=== PATIENT | female | born 1960 | race African-American/Black ===

== ENCOUNTER 2016-12-15 09:59 | Emergency (ER) | payer MEDICAID, OTHER ==
[~2016-12-15] VITALS: Ht 157.5 cm; Wt 93.2 kg
[~2016-12-15 09:59] MED LIST: ATRITAB PO; FERR324T8 PO; HYDR25TA5 PO; IBUP-232 PO; LEVO150T7 PO; MOBI7.5T PO; SIMV80TA PO; TRAM50TA PO
[2016-12-15 10:03] VITALS: BP 112/69; PULSE 68; RESP 16; TEMP 98.2; O2SAT 99
[2016-12-15] MEDS ORDERED: KETOROLAC TROMETHAMINE 30 MG/ML (IVP) VIAL IV PUSH ONE (10:30)
[2016-12-15 10:39] LABS: AUTOMATED NEUTROPHIL # 3.3 TH/MM3 (1.8-7.7); BASOPHIL % 0.5 % (0.0-2.0); EOSINOPHIL # 0.1 TH/MM3 (0-0.4); EOSINOPHIL % 1.2 % (0.0-4.0); HEMATOCRIT 34.8 % (35.0-46.0); HEMO FLAGS DIFF FINAL; LYMPH % 29.5 % (9.0-44.0); LYMPHOCYTE # 1.6 TH/MM3 (1.0-4.8); MEAN CELL VOLUME 82.4 FL (80.0-100.0); MEAN CORPUSCULAR HEMOGLOBIN 27.4 PG (27.0-34.0); MEAN CORPUSCULAR HGB CONC 33.2 % (32.0-36.0); NEUT % 59.8 % (16.0-70.0); PLATELET COUNT 320 TH/MM3 (150-450); RED BLOOD COUNT 4.23 MIL/MM3 (4.00-5.30); RED CELL DISTRIBUTION WIDTH 13.8 % (11.6-17.2); WHITE BLOOD COUNT 5.5 TH/MM3 (4.0-11.0)
[2016-12-15 10:45] LABS: BLOOD, URINE NEG (NEG); GLUCOSE,URINE NEG (NEG); KETONE, URINE NEG (NEG); NITRITE,URINE NEG (NEG)
[2016-12-15 10:48] LABS: CHLORIDE 104 MEQ/L (98-107); POTASSIUM 3.2 MEQ/L (3.5-5.1); SODIUM (NA) 141 MEQ/L (136-145)
[2016-12-15 10:49] LABS: METHOD OF COLLECTION CLEAN CATCH; URINE COLOR YELLOW (YELLW/STRAW)
[2016-12-15 10:52] LABS: ANION GAP 9 MEQ/L (5-15); BICARBONATE 28.5 MEQ/L (21.0-32.0); BLOOD UREA NITROGEN 18 MG/DL (7-18)
[2016-12-15 10:52] LABS: BACTERIA, URINE OCC /hpf; COMMENT (UR) CULT NOT INDICATED; CULTURE IF INDICATED CULT NOT INDICATED; RBC, URINE 0-3 /hpf (0-3); SQUAMOUS EPITHELIAL CELL URINE > 8 /hpf (0-5); WBC, URINE 15-19 /hpf (0-5)
[2016-12-15 10:55] LABS: ALT (GPT) 22 U/L (10-53); AST (GOT) 20 U/L (15-37); GLOMERULAR FILTRATION RATE 82 ML/MIN (>89)
[2016-12-15 10:56] LABS: TOTAL BILIRUBIN ADULT 0.3 MG/DL (0.2-1.0)
[2016-12-15 10:58] LABS: ALKALINE PHOSPHATASE 106 U/L (45-117)
[2016-12-15 11:30] VITALS: RESP 16
--- NOTE | 2016-12-15 11:51 | PD ---
HPI Chief Complaint: Back/ Neck Pain or Injury Time Seen by Provider: 10:09 Travel History International Travel<30 days: No Contact w/Intl Traveler<30days: No Traveled to known affect area: No History of Present Illness HPI This is a 56-year-old female who has a history of HIV and recent hospitalization in the setting of severe sepsis from a UTI who presents to the emergency department reporting 1 week of increasing mid and lower back pain, constant described as a burning, worse with movement, improved with rest. She denies any associated fevers or chills and denies any vomiting. She says she went when urgent care where they did an x-ray injected urinalysis and didn't note a urinary tract infection. She says she intermittently has had back pain for months but she says over the past week it's become much more severe. Her pain is nonradiating. She denies any abdominal discomfort. PFSH Past Medical History Hx Anticoagulant Therapy: No Autoimmune Disease: No Blood Disorders: No Cancer: No Cardiovascular Problems: Yes (HTN) High Cholesterol: Yes Diabetes: No Diminished Hearing: No Endocrine: Yes Gastrointestinal Disorders: Yes (SBO) Genitourinary: No Hepatitis: No Hiatal Hernia: Yes (BILATERAL) Hypertension: Yes Immune Disorder: Yes (HIV) Implanted Vascular Access Dvce: No Musculoskeletal: No Neurologic: No Psychiatric: No Reproductive: No Respiratory: No Immunizations Current: Yes Thyroid Disease: Yes (hypothyroid disorder) Tetanus Vaccination: < 5 Years Influenza Vaccination: Yes ?: Not Menopausal: Yes Past Surgical History Abdominal Surgery: Yes (abd wall Hernia X 6 with mesh, bowel obstruction twisted) AICD: No Section: Yes (X3) Cholecystectomy: Yes Joint Replacement: No Pacemaker: No Other Surgery: Yes Social History Alcohol Use: No Tobacco Use: No Substance Use: No Allergies-Medications (Allergen,Severity, Reaction): Coded Allergies: Amoxicillin (Verified Allergy, Mild, Hives, 12/15/16) Ceftin (Verified Allergy, Mild, Itching, 12/15/16) Penicillin (Verified Allergy, Mild, RASH, 12/15/16) Reported Meds & Prescriptions Reported Meds & Active Scripts Active Ibuprofen 600 Mg Tab 600 Mg PO Q6H PRN Levothyroxine (Levothyroxine Sodium) 150 Mcg Tab 150 Mcg PO DAILY Hydrochlorothiazide 25 Mg Tab 25 Mg PO DAILY Ferrous Fumarate 324 Mg Tab 325 Mg PO BID Reported Atripla (Chjgiycok-Cevfvchtqisqd-Pwksyrvsq) 600-200-300 Mg Tab 1 Tab PO HS Take on an empty stomach. Review of Systems Except as stated in HPI: all other systems reviewed are Neg Physical Exam Narrative GENERAL:Well appearing, no acute distress SKIN: Focused skin assessment warm and dry. HEAD: Atraumatic. Normocephalic. EYES: Pupils equal and round. No injection or drainage. ENT: Moist mucous membranes NECK: Trachea midline. CARDIOVASCULAR: Regular rate and rhythm. No murmur appreciated. RESPIRATORY: Clear to auscultation. Breath sounds equal bilaterally. GASTROINTESTINAL: Abdomen soft, non-tender, nondistended. MUSCULOSKELETAL: Focally tender to palpation in the lower thoracic and upper lumbar spine along the vertebral bodies. NEUROLOGICAL: Awake and alert. No obvious cranial nerve deficits. Moving all extremities. PSYCHIATRIC: Appropriate mood and affect; insight and judgment normal. Data Data Last Documented VS Vital Signs Date Time Temp Pulse Resp B/P Pulse Ox O2 Delivery O2 Flow Rate FiO2 12/15/16 11:30 16 12/15/16 10:15 65 12/15/16 10:03 98.2 112/69 99 Orders Complete Blood Count With Diff (12/15/16 10:17) Comprehensive Metabolic Panel (12/15/16 10:17) [place] Sedimentation Rate (12/15/16 10:17) C-Reactive Protein (Crp) (12/15/16 10:17) ^ Insert Iv (12/15/16 10:17) Urinalysis - C+S If Indicated (12/15/16 10:17) Ketorolac Inj (Toradol Inj) (12/15/16 10:30) Urinalysis - C+S If Indicated (12/15/16 11:39) Urine Culture (12/15/16 11:55) Cath For Specimen (12/15/16 12:24) Urinalysis - C+S If Indicated (12/15/16 12:24) Urine Culture (12/15/16 12:45) Labs Laboratory Tests Test 12/15/16 12/15/16 12/15/16 12/15/16 10:25 10:30 11:55 12:45 Urine Collection Type CLEAN CATCH CLEAN CATCH CATH Urine Color YELLOW YELLOW YELLOW Urine Turbidity CLEAR CLEAR CLEAR Urine pH 6.0 5.5 6.0 Urine Specific [place] 1.023 1.027 1.024 Urine Protein NEG mg/dL TRACE mg/dL TRACE mg/dL Urine Glucose (UA) NEG mg/dL NEG mg/dL NEG mg/dL Urine Ketones NEG mg/dL NEG mg/dL NEG mg/dL Urine Occult Blood NEG NEG NEG Urine Nitrite NEG NEG NEG Urine Bilirubin NEG NEG NEG Urine Leukocyte Esterase TRACE SMALL SMALL Urine RBC 0-3 /hpf 0-3 /hpf Urine WBC 15-19 /hpf 20-24 /hpf 9-14 /hpf Urine Squamous Epithelial > 8 /hpf > 8 /hpf 6-8 /hpf Cells Urine Bacteria OCC /hpf FEW /hpf RARE /hpf Microscopic Urinalysis Comment CULT NOT CULTURE CATH-CULTURE INDICATED INDICATED IND Urine Collection Time 10:25 11:55 12:45 White Blood Count 5.5 TH/MM3 Red Blood Count 4.23 MIL/MM3 Hemoglobin 11.6 GM/DL Hematocrit 34.8 % Mean Corpuscular Volume 82.4 FL Mean Corpuscular Hemoglobin 27.4 PG Mean Corpuscular Hemoglobin 33.2 % Concent Red Cell Distribution Width 13.8 % Platelet Count 320 TH/MM3 Mean Platelet Volume 6.8 FL Neutrophils (%) (Auto) 59.8 % Lymphocytes (%) (Auto) 29.5 % Monocytes (%) (Auto) 9.0 % Eosinophils (%) (Auto) 1.2 % Basophils (%) (Auto) 0.5 % Neutrophils # (Auto) 3.3 TH/MM3 Lymphocytes # (Auto) 1.6 TH/MM3 Monocytes # (Auto) 0.5 TH/MM3 Eosinophils # (Auto) 0.1 TH/MM3 Basophils # (Auto) 0.0 TH/MM3 CBC Comment DIFF FINAL Differential Comment Erythrocyte Sedimentation Rate 68 mm/hr Sodium Level 141 MEQ/L Potassium Level 3.2 MEQ/L Chloride Level 104 MEQ/L Carbon Dioxide Level 28.5 MEQ/L Anion Gap 9 MEQ/L Blood Urea Nitrogen 18 MG/DL Creatinine 0.87 MG/DL Estimat Glomerular Filtration 82 ML/MIN Rate Random Glucose 92 MG/DL Calcium Level 8.8 MG/DL Total Bilirubin 0.3 MG/DL Aspartate Amino Transf 20 U/L (AST/SGOT) Alanine Aminotransferase 22 U/L (ALT/SGPT) Alkaline Phosphatase 106 U/L C-Reactive Protein 2.90 MG/DL Total Protein 8.7 GM/DL Albumin 3.6 GM/DL Urine Transitional Epithelial 0-5 /hpf Cells Urine Hyaline Casts 0-2 /lpf MDM Medical Decision Making Medical Screen Exam Complete: Yes Emergency Medical Condition: Yes Medical Record Reviewed: Yes (patient was admitted in April of last year with severe sepsis in the setting of an Escherichia coli urinary tract infection ) Interpretation(s) No leukocytosis Electrolytes are reassuring Sedimentation rate and CRP are elevated Urinalysis on catheter specimen demonstrates UTI Differential Diagnosis Cystitis, pyelonephritis, musculoskeletal back pain, epidural abscess Narrative Course This is a 56-year-old female who presents to the emergency department with a history of HIV which is well-controlled who presents to the emergency department with back pain. She says over the past week or back pain has been worse although it's been bothering her for months. She does have a history of having a urinary tract infection for which she was hospitalized and treated for sepsis. She was placed on a monitor and an IV was established. Labs are obtained which demonstrate a normal white blood cell count with elevated inflammatory markers. Urinalysis was contaminated with squamous epithelial cells on both collections. Ultimately I obtained a catheterized specimen. Given the patient's history wanted to be sure she has a urinary tract infection because otherwise I might more seriously consider discitis or epidural abscess. Patient appears to have urinary tract infection and I think this can be attributed to her symptoms. I asked her if her symptoms worsen to return to the emergency department. Diagnosis Primary Impression: Urinary tract infection Qualified Code: N10 - Acute pyelonephritis Patient Instructions: General Instructions Additional Instructions: If you develop fever, persistent vomiting, back pain, or inability to eat return to the emergency department as your urine infection may have progressed to a kidney infection. Complete your antibiotics as prescribed. Stay well hydrated with Gatorade or water. Followup with your primary care physician in 2-3 days if your symptoms have not resolved. Med/Other Pt SpecificInfo: Prescription(s) given Scripts Meloxicam (Mobic)7.5 Mg Tab7.5 Mg PO DAILY 14 Days Ref 0 Prov:Robyn Frost MD 12/15/16 Cephalexin (Keflex)500 Mg Emy370 Mg PO Q12H 7 Days Ref 0 Prov:Robyn Frost MD 12/15/16 Disposition: 01 DISCHARGE HOME Condition: Stable Robyn Frost MD December 15, 2016 11:51
[2016-12-15 12:03] LABS: BLOOD, URINE NEG (NEG); GLUCOSE,URINE NEG (NEG); KETONE, URINE NEG (NEG); NITRITE,URINE NEG (NEG); PH, URINE 5.5 (5.0-8.5)
[2016-12-15 12:10] LABS: METHOD OF COLLECTION CLEAN CATCH; URINE COLOR YELLOW (YELLW/STRAW)
[2016-12-15 12:11] LABS: BACTERIA, URINE FEW /hpf; COMMENT (UR) CULTURE INDICATED; CULTURE IF INDICATED CULTURE INDICATED; RBC, URINE 0-3 /hpf (0-3); SQUAMOUS EPITHELIAL CELL URINE > 8 /hpf (0-5)
[2016-12-15 12:58] LABS: BLOOD, URINE NEG (NEG); GLUCOSE,URINE NEG (NEG); KETONE, URINE NEG (NEG); NITRITE,URINE NEG (NEG)
[2016-12-15 13:03] LABS: METHOD OF COLLECTION CATH; URINE COLOR YELLOW (YELLW/STRAW)
[2016-12-15 13:04] LABS: HYALINE CAST, URINE 0-2 /lpf (RARE); TRANSITIONAL EPI CELLS, URINE 0-5 /hpf
[2016-12-15 13:05] LABS: BACTERIA, URINE RARE /hpf; COMMENT (UR) CATH-CULTURE IND; CULTURE IF INDICATED CATH CULTURE IND
[2016-12-15] MEDS ORDERED: CEPH-460 PO (13:19)
[2016-12-15] MEDS ORDERED: MOBI7.5T PO (13:19)
[2016-12-15] MEDS ORDERED: CIPR500T2 PO (13:20)
[2016-12-15] MEDS ORDERED: CIPROFLOXACIN 400 MG PREMIX 200 ML IV ONE (13:30)
[2016-12-15 15:11] VITALS: BP 117/67
[2016-12-18] MEDS ORDERED: TRAM-388 PO (10:13)
[2016-12-18] MEDS ORDERED: CEFU1TAB20 PO (10:13)
[2016-12-22] MEDS ORDERED: TRAM-388 PO (16:21)
[2017-01-27] MEDS ORDERED: TYLETAB34 PO (11:36)
[2017-01-27] MEDS ORDERED: SIMV80TA PO (11:36)
[2017-01-27] MEDS ORDERED: MOBI7.5T PO (11:36)
[2017-01-27] MEDS ORDERED: CYCL7.5T33 PO (11:36)
== END 2016-12-15 15:14 | disposition home or self-care (01) ==
LOC: PHED 09:59
DX: N39.0 Urinary tract infection, site not specified (principal); I10 Essential (primary) hypertension; E78.00 Pure hypercholesterolemia, unspecified; K56.60 Unspecified intestinal obstruction; E03.9 Hypothyroidism, unspecified; Z21 Asymptomatic human immunodeficiency virus [HIV] infection status; Z79.899 Other long term (current) drug therapy; Z88.0 Allergy status to penicillin; Z88.8 Allergy status to other drugs, medicaments and biological substances
CPT/HCPCS: 80053; 81001; 85025; 85652; 86140; 87077; 87086; 87186; 96365; 96375; 99284; J0744; J1885

== ENCOUNTER 2017-02-16 15:33 | Emergency (ER) | payer MEDICAID ==
[~2017-02-16] VITALS: Ht 157.5 cm; Wt 86.0 kg
[~2017-02-16 15:33] MED LIST changes: +CYCL7.5T33 PO; -TRAM50TA PO; +TYLETAB34 PO
[2017-02-16 15:36] VITALS: PULSE 65; RESP 16; TEMP 98.4; O2SAT 99
[2017-02-16] MEDS ORDERED: SODIUM CHLOR 0.9% 1000 ML INJ 1,000 ML IV SCH (16:54)
[2017-02-16] MEDS ORDERED: TYLE325T PO (16:56)
[2017-02-16] MEDS: ALUMINUM/MAGNESIUM/SIMETH 30 ML CUP PO ONE ×2 (17:00→17:16)
[2017-02-16] MEDS ORDERED: SODIUM CHLORIDE 0.9% FLUSH 10 ML FLUSH IV FLUSH PRN (17:00)
[2017-02-16] MEDS ORDERED: DICYCLOMINE HCL 10 MG CAP PO ONE (17:00)
[2017-02-16] MEDS ORDERED: ONDANSETRON HCL 4 MG/2 ML VIAL IVP ONE (17:00)
[2017-02-16] MEDS: LIDOCAINE VISCOUS 2% SOLN 15 ML UDC PO ONE ×2 (17:00→17:16)
--- NOTE | 2017-02-16 17:04 | PD ---
HPI Chief Complaint: GI Complaint Time Seen by Provider: 16:50 Travel History International Travel<30 days: No Contact w/Intl Traveler<30days: No Traveled to known affect area: No History of Present Illness HPI 56-year-old female complains of nausea vomiting and abdominal cramping for 2 weeks. Appetite has been decreased. She denies fever. No urinary complaint. No vaginal bleeding or discharge. She's had no diarrhea. Severity moderate. She denies modifying factor. She reports a similar episode occurred previously however is unsure of the diagnosis. At the time of interview patient elects to withhold the fact that she has HIV . PFSH Past Medical History Hx Anticoagulant Therapy: No Autoimmune Disease: No Blood Disorders: No Cancer: No Cardiovascular Problems: Yes (HTN) High Cholesterol: Yes Diabetes: No Diminished Hearing: No Endocrine: Yes Gastrointestinal Disorders: Yes (SBO) Genitourinary: No Hepatitis: No Hiatal Hernia: Yes (BILATERAL) Hypertension: Yes Immune Disorder: Yes (HIV) Implanted Vascular Access Dvce: No Musculoskeletal: No Neurologic: No Psychiatric: No Reproductive: No Respiratory: No Immunizations Current: Yes Thyroid Disease: Yes (hypothyroid disorder) Influenza Vaccination: Yes ?: Not Menopausal: Yes Past Surgical History Abdominal Surgery: Yes (abd wall Hernia X 6 with mesh, bowel obstruction twisted) AICD: No Section: Yes (X3) Cholecystectomy: Yes Joint Replacement: No Pacemaker: No Other Surgery: Yes Social History Alcohol Use: No Tobacco Use: No Substance Use: No Allergies-Medications (Allergen,Severity, Reaction): Coded Allergies: Amoxicillin (Verified Allergy, Mild, Hives, 02/16/17) Ceftin (Verified Allergy, Mild, Itching, 02/16/17) Penicillin (Verified Allergy, Mild, RASH, 02/16/17) Reported Meds & Prescriptions Reported Meds & Active Scripts Active Bentyl (Dicyclomine HCl) 10 Mg Cap 10 Mg PO TID PRN Zofran Odt (Ondansetron Odt) 4 Mg Tab 4 Mg SL Q8HR PRN Simvastatin 80 Mg Tab 80 Mg PO DAILY Ibuprofen 600 Mg Tab 600 Mg PO Q6H PRN Levothyroxine (Levothyroxine Sodium) 150 Mcg Tab 150 Mcg PO DAILY Hydrochlorothiazide 25 Mg Tab 25 Mg PO DAILY Ferrous Fumarate 324 Mg Tab 325 Mg PO BID Reported Tylenol (Acetaminophen) 325 Mg Tab 650 Mg PO Q4H PRN Atripla (Gskxylbie-Papteavoxpbhq-Rfhwxfveq) 600-200-300 Mg Tab 1 Tab PO HS Take on an empty stomach. Review of Systems Except as stated in HPI: all other systems reviewed are Neg General / Constitutional: No: Fever Gastrointestinal: Positive: Nausea, Vomiting, Abdominal Pain, No: Diarrhea Physical Exam Narrative GENERAL: 56 yo F, WNWD, mild distress SKIN: Warm and dry. HEAD: Atraumatic. Normocephalic. EYES: Pupils equal and round. No scleral icterus. No injection or drainage. ENT: No nasal bleeding or discharge. Mucous membranes pink and moist. NECK: Trachea midline. No JVD. CARDIOVASCULAR: Regular rate and rhythm. RESPIRATORY: No accessory muscle use. Clear to auscultation. Breath sounds equal bilaterally. GASTROINTESTINAL: Soft. Diffuse non-specific tenderness. MUSCULOSKELETAL: Extremities without clubbing, cyanosis, or edema. No obvious deformities. NEUROLOGICAL: Awake and alert. No obvious cranial nerve deficits. Motor grossly within normal limits. Five out of 5 muscle strength in the arms and legs. Normal speech. PSYCHIATRIC: Appropriate mood and affect; insight and judgment normal. Data Data Last Documented VS Vital Signs Date Time Temp Pulse Resp B/P Pulse Ox O2 Delivery O2 Flow Rate FiO2 02/16/17 18:18 76 130/67 98 02/16/17 17:20 18 Room Air 02/16/17 15:36 98.4 Orders Complete Blood Count With Diff (02/16/17 16:54) Comprehensive Metabolic Panel (02/16/17 16:54) Lipase (02/16/17 16:54) Urinalysis - C+S If Indicated (02/16/17 16:54) Iv Access Insert/Monitor (02/16/17 16:54) Ecg Monitoring (02/16/17 16:54) Oximetry (02/16/17 16:54) Ondansetron Inj (Zofran Inj) (02/16/17 17:00) Sodium Chlor 0.9% 1000 Ml Inj (Ns 1000 M (02/16/17 16:54) Sodium Chloride 0.9% Flush (Ns Flush) (02/16/17 17:00) Dicyclomine (Bentyl) (02/16/17 17:00) Al-Mag Hy-Si 40-40-4 Mg/Ml Liq (Mag-Al P (02/16/17 17:00) Lidocaine 2% Viscous (Xylocaine 2% Visco (02/16/17 17:00) Labs Laboratory Tests Test 02/16/17 17:05 White Blood Count 6.7 TH/MM3 Red Blood Count 4.12 MIL/MM3 Hemoglobin 11.7 GM/DL Hematocrit 35.2 % Mean Corpuscular Volume 85.4 FL Mean Corpuscular Hemoglobin 28.4 PG Mean Corpuscular Hemoglobin 33.2 % Concent Red Cell Distribution Width 14.6 % Platelet Count 303 TH/MM3 Mean Platelet Volume 7.3 FL Neutrophils (%) (Auto) 73.0 % Lymphocytes (%) (Auto) 20.3 % Monocytes (%) (Auto) 4.6 % Eosinophils (%) (Auto) 1.5 % Basophils (%) (Auto) 0.6 % Neutrophils # (Auto) 4.9 TH/MM3 Lymphocytes # (Auto) 1.4 TH/MM3 Monocytes # (Auto) 0.3 TH/MM3 Eosinophils # (Auto) 0.1 TH/MM3 Basophils # (Auto) 0.0 TH/MM3 CBC Comment DIFF FINAL Differential Comment Sodium Level 138 MEQ/L Potassium Level 3.8 MEQ/L Chloride Level 107 MEQ/L Carbon Dioxide Level 24.0 MEQ/L Anion Gap 7 MEQ/L Blood Urea Nitrogen 15 MG/DL Creatinine 0.98 MG/DL Estimat Glomerular Filtration 72 ML/MIN Rate Random Glucose 98 MG/DL Calcium Level 8.8 MG/DL Total Bilirubin 0.2 MG/DL Aspartate Amino Transf 26 U/L (AST/SGOT) Alanine Aminotransferase 23 U/L (ALT/SGPT) Alkaline Phosphatase 106 U/L Total Protein 8.5 GM/DL Albumin 3.5 GM/DL Lipase 115 U/L [facility] Medical Decision Making Medical Screen Exam Complete: Yes Emergency Medical Condition: Yes Differential Diagnosis Constipation, Gastritis, Acute Cholecystitis, Biliary Colic, Pancreatitis, LIU , Hepatitis, Bowel Obstruction, Cystitis, Mesenteric Ischemia, AAA, Appendicitis , Renal Stone/Hydronephrosis, GERD, perforated viscous Narrative Course CBC & BMP Diagram 02/16/17 17:05 LFTs and lipase normal Pt received IVF and Zofran. Reassessment at approximately 6:15 PM: The patient is resting comfortably and feels better, is alert and in no distress. The patients results and examination findings were discussed. The repeat examination is unremarkable and benign. The history, exam, diagnostic testing, and current condition do not suggest any significant pathology to warrant further testing, continued ED treatment, admission, or surgical evaluation at this point. The vital signs have been stable. The patient does not have uncontrollable pain, intractable vomiting, or other significant symptoms. The patient's condition is stable and appropriate for discharge. The patient will pursue further outpatient evaluation with a primary care physician or other designated or consulting physician as indicated in the discharge instructions. The patient expressed understanding and was agreeable with this plan. Diagnosis Primary Impression: Nausea & vomiting Qualified Code: R11.2 - Non-intractable vomiting with nausea, unspecified vomiting type Additional Impression: Abdominal cramping Referrals: Fawad Peña MD R2 1 day Additional Instructions: You have a choice when it comes to health care, and we are glad that you chose [facility]. Hopefully, we have met your expectations on today's visit. You are welcome to return to [facility] at any time, as we are committed to meeting the health care needs of our community. Med/Other Pt SpecificInfo: Prescription(s) given Scripts Dicyclomine (Bentyl)10 Mg Cap10 Mg PO TID PRN (Bowel Management) #10 CAP Ref 0 Prov:Blu Alfredo MD 02/16/17 Ondansetron Odt (Zofran Odt)4 Mg Tab4 Mg SL Q8HR PRN (Nausea/Vomiting) #10 TAB Ref 0 Prov:Blu Alfredo MD 02/16/17 Disposition: 01 DISCHARGE HOME Condition: Stable Blu Alfredo MD Feb 16, 2017 17:04
[2017-02-16 17:18] LABS: AUTOMATED NEUTROPHIL # 4.9 TH/MM3 (1.8-7.7); BASOPHIL % 0.6 % (0.0-2.0); EOSINOPHIL # 0.1 TH/MM3 (0-0.4); EOSINOPHIL % 1.5 % (0.0-4.0); HEMATOCRIT 35.2 % (35.0-46.0); HEMO FLAGS DIFF FINAL; LYMPH % 20.3 % (9.0-44.0); LYMPHOCYTE # 1.4 TH/MM3 (1.0-4.8); MEAN CELL VOLUME 85.4 FL (80.0-100.0); MEAN CORPUSCULAR HEMOGLOBIN 28.4 PG (27.0-34.0); MEAN CORPUSCULAR HGB CONC 33.2 % (32.0-36.0); MONO % 4.6 % (0.0-8.0); PLATELET COUNT 303 TH/MM3 (150-450); RED BLOOD COUNT 4.12 MIL/MM3 (4.00-5.30); RED CELL DISTRIBUTION WIDTH 14.6 % (11.6-17.2); WHITE BLOOD COUNT 6.7 TH/MM3 (4.0-11.0)
[2017-02-16 17:20] VITALS: BP 125/68; PULSE 66; RESP 18; O2SAT 98
[2017-02-16 17:23] LABS: CHLORIDE 107 MEQ/L (98-107); POTASSIUM 3.8 MEQ/L (3.5-5.1); SODIUM (NA) 138 MEQ/L (136-145)
[2017-02-16 17:27] LABS: ANION GAP 7 MEQ/L (5-15); BLOOD UREA NITROGEN 15 MG/DL (7-18)
[2017-02-16 17:30] LABS: ALT (GPT) 23 U/L (10-53); AST (GOT) 26 U/L (15-37); GLOMERULAR FILTRATION RATE 72 ML/MIN (>89)
[2017-02-16 17:31] LABS: TOTAL BILIRUBIN ADULT 0.2 MG/DL (0.2-1.0)
[2017-02-16 17:33] LABS: ALKALINE PHOSPHATASE 106 U/L (45-117)
[2017-02-16] MEDS ORDERED: DICY10 PO (17:44)
[2017-02-16] MEDS ORDERED: ZOFR4TAB3 SL (17:44)
[2017-02-16 18:18] VITALS: BP 130/67
[2017-02-23] MEDS ORDERED: LOMO2.5T PO (11:56)
[2017-02-23] MEDS ORDERED: SANC3.1D EXTERNAL (11:56)
[2017-02-23] MEDS ORDERED: KETO60IN6 IM ×2 (11:56→12:24)
[2017-02-23] MEDS ORDERED: DICL1GEL3 TOPICAL (12:00)
[2017-03-02] MEDS ORDERED: TRAM50TA PO (09:30)
[2017-03-02] MEDS ORDERED: LEVO137T2 PO (10:36)
== END 2017-02-16 18:28 | disposition home or self-care (01) ==
LOC: PHED 15:33
DX: R11.2 Nausea with vomiting, unspecified (principal); R10.84 Generalized abdominal pain; R63.0 Anorexia; I10 Essential (primary) hypertension; E03.9 Hypothyroidism, unspecified; E78.00 Pure hypercholesterolemia, unspecified; Z21 Asymptomatic human immunodeficiency virus [HIV] infection status; Z87.19 Personal history of other diseases of the digestive system
CPT/HCPCS: 80053; 83690; 85025; 96361; 96374; 99284; J2405; J7030

== ENCOUNTER 2017-05-02 12:20 | Inpatient (IN) | payer MEDICAID ==
[~2017-05-02] VITALS: Ht 157.5 cm; Wt 89.3 kg
[2017-05-02] VITALS (8 sets, daily range): BP systolic 91–126; BP diastolic 57–82; PULSE 57–80; RESP 16–19; TEMP 97.1–98.8; O2SAT 95–99
[~2017-05-02 12:20] MED LIST changes: -CYCL7.5T33 PO; +DICL1GEL3 TOPICAL; +GABA300C5 PO; -IBUP-232 PO; +LEVO137T2 PO; -LEVO150T7 PO; +TYLE325T PO; -TYLETAB34 PO; +ZOFR4TAB3 SL
[2017-05-02] MEDS ORDERED: HYDR-3288 PO (12:59)
[2017-05-02] MEDS ORDERED: SODIUM CHLORID 0.9% 500 ML INJ 500 ML IV ONE (13:00)
[2017-05-02] MEDS ORDERED: SODIUM CHLORIDE 0.9% FLUSH 10 ML FLUSH IV FLUSH PRN (13:00)
[2017-05-02] MEDS ORDERED: MORPHINE SULFATE 8 MG/ML INJ IV PUSH ONE (13:00)
[2017-05-02] MEDS ORDERED: ONDANSETRON HCL 4 MG/2 ML VIAL IVP ONE (13:00)
--- NOTE | 2017-05-02 13:01 | PD ---
HPI Chief Complaint: GI Complaint Time Seen by Provider: 12:54 Travel History International Travel<30 days: No Contact w/Intl Traveler<30days: No Traveled to known affect area: No History of Present Illness HPI 56-year-old female with multiple abdominal surgical history presents emergency department for evaluation of nausea vomiting back pain as well as abdominal pain. She states she's been having back pain for the past several months and has had an outpatient MRI. She came in today because she started having radiation to her abdomen and becoming nauseous and vomiting. She has a history of incarcerated ventral hernia requiring repair in the past by Dr. Multani. She states she's been having several other surgeries on her abdomen has been postoperative complicated by large fluid collection under abdomen wall. She denies any fever denies any diarrhea or constipation, she states anything she eats seems to come right back up. States is HIV positive and has been taking her medications. Patient states her back pain is been present for several months, no cauda equina symptoms: No paresthesias, no radiculopathy, no saddle anesthesia, no fevers, PFSH Past Medical History Hx Anticoagulant Therapy: No Autoimmune Disease: No Blood Disorders: No Cancer: No Cardiovascular Problems: Yes (HTN) High Cholesterol: Yes Diabetes: No Diminished Hearing: No Endocrine: Yes Gastrointestinal Disorders: Yes (SBO) Genitourinary: No Hepatitis: No Hiatal Hernia: Yes (BILATERAL) Hypertension: Yes Immune Disorder: Yes (HIV) Implanted Vascular Access Dvce: No Musculoskeletal: No Neurologic: No Psychiatric: No Reproductive: No Respiratory: No Immunizations Current: Yes Thyroid Disease: Yes (hypothyroid disorder) ?: Not Menopausal: Yes Past Surgical History Abdominal Surgery: Yes (abd wall Hernia X 6 with mesh, bowel obstruction twisted) AICD: No Section: Yes (X3) Cholecystectomy: Yes Joint Replacement: No Pacemaker: No Other Surgery: Yes Social History Alcohol Use: No Tobacco Use: No Substance Use: No Allergies-Medications (Allergen,Severity, Reaction): Coded Allergies: amoxicillin (Unverified Allergy, Mild, Hives, 05/02/17) cefuroxime (Unverified Allergy, Mild, Itching, 05/02/17) penicillin G (Unverified Allergy, Mild, RASH, 05/02/17) Reported Meds & Prescriptions Reported Meds & Active Scripts Active Gabapentin 300 Mg Cap 300 Mg PO HS Levothyroxine (Levothyroxine Sodium) 137 Mcg Tab 137 Mcg PO DAILY Hydrochlorothiazide 25 Mg Tab 25 Mg PO DAILY Ferrous Fumarate 324 Mg Tab 325 Mg PO BID Reported Malinta (Hydrocodone-Acetaminophen) 7.5-325 mg Tab 1 Tab PO Q8HR PRN Atripla (Oyalyeqaw-Tbyfwahlletlp-Phmkgxcgs) 600-200-300 Mg Tab 1 Tab PO HS Take on an empty stomach. Review of Systems Except as stated in HPI: all other systems reviewed are Neg Physical Exam Narrative GENERAL: Well-developed well-nourished no obvious distress, somewhat flat affect. SKIN: Focused skin assessment warm/dry. HEAD: Atraumatic. Normocephalic. EYES: Pupils equal and round. No scleral icterus. No injection or drainage. ENT: No nasal bleeding or discharge. Mucous membranes pink and moist. NECK: Trachea midline. No JVD. CARDIOVASCULAR: Regular rate and rhythm. No murmur appreciated. RESPIRATORY: No accessory muscle use. Clear to auscultation. Breath sounds equal bilaterally. GASTROINTESTINAL: Abdomen soft, non-tender, moderately distended. She is a palpable mass just the right of midline on her abdomen consistent with large hernia versus seroma. She has a well-healed midline surgical scar. Bowel sounds are hypoactive but present. No rebound no percussive tenderness no CVA tenderness. MUSCULOSKELETAL: No obvious deformities. No clubbing. No cyanosis. No edema. No midline CT or L-spine tenderness. Pelvis stable and nontender. Hips nontender. 5 out of 5 strength in bilateral lower extremities, 2+ bilateral equal reflexes at the patella and Achilles tendons. NEUROLOGICAL: Awake and alert. No obvious cranial nerve deficits. Motor grossly within normal limits. Normal speech. PSYCHIATRIC: Appropriate mood and affect; insight and judgment normal. Data Data Last Documented VS Vital Signs Date Time Temp Pulse Resp B/P (MAP) Pulse Ox O2 Delivery O2 Flow Rate FiO2 05/02/17 14:59 16 05/02/17 14:34 64 112/61 (78) 99 Room Air 05/02/17 12:31 98.8 Orders Orders Complete Blood Count With Diff (05/02/17 12:54) Comprehensive Metabolic Panel (05/02/17 12:54) Lipase (05/02/17 12:54) Lactic Acid (05/02/17 12:54) Prothrombin Time / Inr (Pt) (05/02/17 12:54) Act Partial Throm Time (Ptt) (05/02/17 12:54) Urinalysis - C+S If Indicated (05/02/17 12:54) Ct Abd/Pel W Iv Contrast(Rout) (05/02/17 12:54) Iv Access Insert/Monitor (05/02/17 12:54) Ecg Monitoring (05/02/17 12:54) Oximetry (05/02/17 12:54) Ondansetron Inj (Zofran Inj) (05/02/17 13:00) Sodium Chloride 0.9% Flush (Ns Flush) (05/02/17 13:00) Morphine Inj (Morphine Inj) (05/02/17 13:00) Sodium Chlorid 0.9% 500 Ml Inj (Ns 500 M (05/02/17 13:00) Iohexol 350 Inj (Omnipaque 350 Inj) (05/02/17 14:00) Hydromorphone Pf Inj (Dilaudid Pf Inj) (05/02/17 14:30) Admit Order (Ed Use Only) (05/02/17 ) Labs Laboratory Tests Test 05/02/17 13:16 White Blood Count 5.4 TH/MM3 Red Blood Count 4.16 MIL/MM3 Hemoglobin 11.8 GM/DL Hematocrit 35.4 % Mean Corpuscular Volume 85.2 FL Mean Corpuscular Hemoglobin 28.3 PG Mean Corpuscular Hemoglobin Concent 33.3 % Red Cell Distribution Width 13.3 % Platelet Count 329 TH/MM3 Mean Platelet Volume 7.2 FL Neutrophils (%) (Auto) 61.5 % Lymphocytes (%) (Auto) 28.3 % Monocytes (%) (Auto) 8.6 % Eosinophils (%) (Auto) 1.0 % Basophils (%) (Auto) 0.6 % Neutrophils # (Auto) 3.3 TH/MM3 Lymphocytes # (Auto) 1.5 TH/MM3 Monocytes # (Auto) 0.5 TH/MM3 Eosinophils # (Auto) 0.1 TH/MM3 Basophils # (Auto) 0.0 TH/MM3 CBC Comment DIFF FINAL Differential Comment Prothrombin Time 10.7 SEC Prothromb Time International Ratio 1.0 RATIO Activated Partial Thromboplast Time 30.7 SEC Blood Urea Nitrogen 13 MG/DL Creatinine 0.78 MG/DL Random Glucose 102 MG/DL Total Protein 8.9 GM/DL Albumin 3.6 GM/DL Calcium Level 9.1 MG/DL Alkaline Phosphatase 119 U/L Aspartate Amino Transf (AST/SGOT) 29 U/L Alanine Aminotransferase (ALT/SGPT) 40 U/L Total Bilirubin 0.4 MG/DL Sodium Level 137 MEQ/L Potassium Level 3.1 MEQ/L Chloride Level 101 MEQ/L Carbon Dioxide Level 29.2 MEQ/L Anion Gap 7 MEQ/L Estimat Glomerular Filtration Rate 93 ML/MIN Lactic Acid Level 0.8 mmol/L Lipase 63 U/L [facility] Medical Decision Making Medical Screen Exam Complete: Yes Emergency Medical Condition: Yes Differential Diagnosis obstipation, bowel obstruction, dehydration, electrolyte abnormality. Narrative Course Patient 56-year-old female history of multiple abdominal surgeries, I have a high suspicion of bowel obstruction in this patient, taken a CAT scan which shows evidence of what appears to be an internal hernia with closed loop obstruction which is likely high grade. Findings are discussed with Dr. Derick Topete. My initial thought process was to place an NG tube he requests to hold officer stomach is not distended and this will not be of any benefit to her , he requests the patient be admitted to his service transferred to the main hospital stay for his evaluation. This was discussed with the patient who is agreeable. With regards to her back pain the patient had a CAT scan of her back on 816 of this year showing multilevel degenerative disc disease without any canal stenosis. I do not appreciate any acute back pathology in this patient on physical exam nor the CAT scan of her abdomen. I believe her back pain is chronic but her obstruction is acute. Patient was given 500 cc normal saline bolus, started on normal saline 75 mL an hour, potassium is 3.1 and will be given 20 mEq IV is starting off point. Diagnosis Primary Impression: Small bowel obstruction Additional Impressions: Internal hernia Abdominal wall seroma Qualified Codes: T88.8XXA - Other specified complications of surgical and medical care, not elsewhere classified, initial encounter; T79.2XXA - Traumatic secondary and recurrent hemorrhage and seroma, initial encounter Admitting Information Admitting Physician Requests: Admit Disposition: 70 TRANSFER TO OTHER FACILITY ([facility]) Condition: Stable Mich Moon MD May 02, 2017 13:01
[2017-05-02 13:25] LABS: AUTOMATED NEUTROPHIL # 3.3 TH/MM3 (1.8-7.7); BASOPHIL % 0.6 % (0.0-2.0); EOSINOPHIL # 0.1 TH/MM3 (0-0.4); HEMATOCRIT 35.4 % (35.0-46.0); HEMO FLAGS DIFF FINAL; LYMPH % 28.3 % (9.0-44.0); LYMPHOCYTE # 1.5 TH/MM3 (1.0-4.8); MEAN CELL VOLUME 85.2 FL (80.0-100.0); MEAN CORPUSCULAR HEMOGLOBIN 28.3 PG (27.0-34.0); MEAN CORPUSCULAR HGB CONC 33.3 % (32.0-36.0); MONO % 8.6 % (0.0-8.0); NEUT % 61.5 % (16.0-70.0); PLATELET COUNT 329 TH/MM3 (150-450); RED BLOOD COUNT 4.16 MIL/MM3 (4.00-5.30); RED CELL DISTRIBUTION WIDTH 13.3 % (11.6-17.2); WHITE BLOOD COUNT 5.4 TH/MM3 (4.0-11.0)
[2017-05-02 13:32] LABS: CHLORIDE 101 MEQ/L (98-107); POTASSIUM 3.1 MEQ/L (3.5-5.1); SODIUM (NA) 137 MEQ/L (136-145)
[2017-05-02 13:36] LABS: ANION GAP 7 MEQ/L (5-15); BICARBONATE 29.2 MEQ/L (21.0-32.0); BLOOD UREA NITROGEN 13 MG/DL (7-18)
[2017-05-02 13:37] LABS: APTT (PATIENT) 30.7 SEC (24.3-30.1); PROTHROMBIN TIME - PATIENT 10.7 SEC (9.8-11.6)
[2017-05-02 13:38] LABS: ALT (GPT) 40 U/L (10-53)
[2017-05-02 13:39] LABS: AST (GOT) 29 U/L (15-37); GLOMERULAR FILTRATION RATE 93 ML/MIN (>89)
[2017-05-02 13:40] LABS: TOTAL BILIRUBIN ADULT 0.4 MG/DL (0.2-1.0)
[2017-05-02 13:41] LABS: ALKALINE PHOSPHATASE 119 U/L (45-117)
[2017-05-02] MEDS ORDERED: IOHEXOL 350 MG/ML 10 ML VIAL (for RAD DIAG) IVCONTRAST ONE (14:00)
[2017-05-02] MEDS ORDERED: HYDROmorphone HCL PF 1 MG/ML VIAL IV PUSH ONE (14:30)
--- NOTE | 2017-05-02 14:34 | RADRPT ---
EXAM DATE/TIME: 05/02/2017 13:55 [facility] COMPARISON: CT ABDOMEN & PELVIS W CONTRAST, May 03, 2016, 18:49. INDICATIONS : Diffuse abdominal pain with nausea, vomiting and diarrhea. IV CONTRAST: 95 cc Omnipaque 350 (iohexol) IV ORAL CONTRAST: No oral contrast ingested. RADIATION DOSE: 20.51 CTDIvol (mGy) MEDICAL HISTORY : Hypothyroidism. Hypertension. SURGICAL HISTORY : Cholecystectomy. section.Hernia repair. ENCOUNTER: Initial ACUITY: 1 day PAIN SCALE: 4/10 LOCATION: Bilateral abdomen TECHNIQUE: Volumetric scanning of the abdomen and pelvis was performed. Using automated exposure control and ad justment of the mA and/or kV according to patient size, radiation dose was kept as low as reasonably achievable to obtain optimal diagnostic quality images. DICOM format image data is available electro nically for review and comparison. FINDINGS: The limited portion of the lung base visualized is clear. The appearance of the liver, spleen, pancreas, adrenal glands and right kidney is within normal limit s. Examination of the left kidney demonstrates a 2 cm simple cyst. The abdominal aorta is normal in caliber there is no retroperitoneal lymphadenopathy present. Evaluation of the visualized loops of small and large bowel demonstrate multiple loops of fluid-fille d small bowel which can be tracked down to the right lower quadrant. There has been resection of the cecum and ileocecal anastomosis. There is a area of bowel which is significantly dilated at the anast omosis measuring at least 7.6 cm in transverse dimension. There is a swirling pattern of the bowel ju st prior to this and significant narrowing of the bowel which proceeds from this suggesting internal hernia and bowel obstruction. The colon is decompressed. There is no free intraperitoneal air. No free intraperitoneal fluid is seen. The examination does demonstrate a 19.5 x 19.1 cm seroma this fluid collection in the anterior abdomi nal wall. This is similar to a previous dated 05/03/16. No iliac or inguinal adenopathy is seen. The reproductive organs are intact. The bony structures demonstrate degenerative changes but are otherwise intact. CONCLUSION: 1. Abnormal examination demonstrating postsurgical changes consistent with resection of the cecum and ileocecal anastomosis. There is a loop of bowel at this point which measures 7.6 cm in diameter. The bowel coming from this appears abnormal. There is a swirling pattern of the mesentery. The exam is c oncerning for internal hernia and bowel obstruction. 2. 19.8 x 9.9 cm seroma this fluid collection in the anterior abdominal wall. Blu Nickerson MD on May 02, 2017 at 14:28 Board Certified Radiologist. This report was verified electronically.
[2017-05-02] MEDS: SODIUM CHLOR 0.9% 1000 ML INJ 1,000 ML IV SCH (15:13)
[2017-05-02] MEDS ORDERED: POTASSIUM CHLOR 20 MEQ PREMIX 100 ML IV ONE (15:15)
[2017-05-02 16:12] LABS: BLOOD, URINE TRACE (NEG); GLUCOSE,URINE NEG (NEG); KETONE, URINE NEG (NEG); NITRITE,URINE NEG (NEG); PH, URINE 7.5 (5.0-8.5)
[2017-05-02 16:17] LABS: METHOD OF COLLECTION CLEAN CATCH
[2017-05-02 16:18] LABS: COMMENT (UR) CULT NOT INDICATED; CULTURE IF INDICATED CULT NOT INDICATED; SQUAMOUS EPITHELIAL CELL URINE 0-5 /hpf (0-5); URINE COLOR YELLOW (YELLW/STRAW)
[2017-05-02] MEDS ORDERED: ONDANSETRON HCL 4 MG/2 ML VIAL IV PUSH ONE (16:30)
--- NOTE | 2017-05-02 19:52 | MH ---
cc: CLAUDE TENORIO,ANABEL Man M.D. DATE OF ADMISSION: 05/02/2017 REASON FOR ADMISSION Possible bowel obstruction. HISTORY OF PRESENT ILLNESS: This is a very pleasant 56-year-old -[place]ong[place] woman with long sordid history of multiple abdominal surgeries most recently in 2016. She had her fourth operation for ventral incisional hernia with the last three being done by Dr. Tenorio, two laparoscopic and last open with an onlay mesh. Back in 2007, Dr. Multani had done extensive adhesiolysis and a primary repair with an onlay of biologic mesh. The patient was in her normal state of health having on and off back pain and some intermittent abdominal discomfort until she awoke at 4:00 in the morning with severe abdominal pain and had nausea with emesis. Everything she ate plus her medications she tasted on the way out. She had had a normal bowel movement at noon the day before. She had been having normal urinary tract function with no burning. She denies fevers or chills. She had a couple of other episodes of emesis before going from [place] to the [facility]. PAST MEDICAL HISTORY: She has HIV and she is compliant with her medications. She is also hypothyroid and has high cholesterol. She denies any prior problems with anesthesia, going to sleep or waking up for any of her operations. PAST SURGICAL HISTORY: 1. Laparoscopic cholecystectomy. 2. Three sections. 3. Multiple surgeries for ventral hernia and then recurrent incisional hernias which are well-elucidated in the electronic health record. SOCIAL HISTORY: She is a nonsmoker, nondrinker. She has had blood transfusions in the past but does not believe she has hepatitis. She, again, his HIV positive. FAMILY HISTORY: Her family history is noncontributory. REVIEW OF SYSTEMS: On review of systems, she denies primary lung or heart disorders primary liver or kidney disorders. She has never had strokes or seizures, never been told she has had diabetes and she has never been prescribed blood thinning medications. PHYSICAL EXAMINATION: GENERAL: On physical examination, she is a well-developed, well-nourished -[place]ongan woman who is in no acute distress. She is accompanied by multiple family members. VITAL SIGNS: Her vital signs included on initial evaluation a temperature of 98.8. Her blood pressure is now 115/79 and her pulse is 70, respiratory rate 16, oxygen saturation is 97%. HEAD, EYES, EARS, NOSE, THROAT: She is normocephalic, atraumatic. Pupils are difficult to elucidate due to dark eyes and they appear round, sluggishly reactive to light. Her sclerae are anicteric. Oropharynx is clear. Mucosal lesions are not present. She has upper and lower full denture plates. NECK: Her neck is supple without adenopathy. She has a midline trachea. No jugular venous distension, thyromegaly and no carotid bruits. LUNGS: Her lungs are clear and equal anteriorly bilaterally. HEART: Her heart sounds are regular without obvious murmur or gallop. ABDOMEN: Her abdomen is soft and nondistended. She has a healed midline scar. She has multiple small scars from laparoscopy. She has a large panniculus that is full of about a 20 cm diameter subcutaneous fluid collection consistent with seroma. There are some firmer areas than others associated with this consistent with scar and/or fat necrosis. It is a nonreducible fluid collection consistent with what is seen on multiple CT scans of the abdomen and pelvis and she has had three since 2016. EXTREMITIES: Her extremities show no cyanosis, clubbing or edema. She has equal radial and weak dorsalis pedis pulses. She has a couple of scars by the right knee from scratches. NEUROLOGIC: She is neurologically awake, alert, oriented. She has equal strong bilateral stretching press operator strength and she is cooperative and pleasant with the evaluation. LABORATORY DATA: Her white count is 5.4 with 61% neutrophils. Her hemoglobin is 11.8, platelet count is 329,000. Coag studies are normal, PTT slightly elevated at 30.7. Potassium is 3.1. creatinine is 0.78, alkaline phosphatase 119, albumin 3.6, lipase low at 63. Her lactic acid is 0.8. Urinalysis shows a specific gravity greater than 1.035. IMAGING STUDIES: As discussed above. A CT of the abdomen and pelvis shows the chronic subcutaneous seromatous mass which measures 19.5 x 19.1 cm similar to the previously dated CT on May 03, 2016. She has a normal loop of bowel where it looks like small bowel is anastomosed to cecum and this anastomotic area is dilated at 7.6 cm. There is additionally some dilated loops of bowel in the mid to left side that are different than surrounding areas of normal decompressed small bowel. This was felt to be concerning for internal hernia and bowel obstruction, although her stomach is not distended and dilated. ASSESSMENT: Unusual bowel gas pattern seen on a CT scan in a patient with abdominal pain, nausea with emesis. She has persistent nausea but her abdominal exam other than this large about 20 cm subcutaneous seromatous mass is completely benign. She has no tenderness to palpation and certainly no rebound or guarding and her lactic acid is normal. Her white count is normal. Her differential is normal. All of those things go against a closed loop obstruction. For this reason, I have advised against emergency surgery. I discussed this in detail with the patient and her family members. I have recommended repeat laboratory evaluation, a flat and upright x-ray of the abdomen tomorrow and repeat abdominal examination by the surgical team. The patient's daughter is familiar with Dr. Jernigan as he took her gallbladder out. She also knows our nurse practitioner, Luciana Carranza, and she has very positive thoughts and experiences with them. In the interim, the patient will receive nonnarcotic pain medication, anti-nausea medicine, a proton pump inhibitor and her regular meds with a sip of water. They are in agreement with this plan of care. MD GWEN Glynn/ANDREI /7:17 PM /7:34 PM
[2017-05-02] MEDS: EMTRICITABINE/TENOFOVIR 200 MG/300 MG TAB PO SCH (20:37)
[2017-05-02] MEDS: SODIUM CHLORIDE 0.9% FLUSH 10 ML FLUSH IV FLUSH SCH (20:38)
[2017-05-02] MEDS: GABAPENTIN 300 MG CAP PO SCH (20:38)
[2017-05-02] MEDS: LACTATED RINGER'S 1000 ML INJ 1,000 ML IV SCH (20:38)
[2017-05-02] MEDS: FERROUS FUMARATE 325 MG TAB (106 MG ELEMENTAL IRON) PO SCH (20:38)
[2017-05-02] MEDS: ACETAMINOPHEN 1000 MG/100 ML 100 ML IV SCH (20:38)
[2017-05-02] MEDS: MORPHINE SULFATE 4 MG/ML INJ IV PUSH PRN (20:39)
[2017-05-02] MEDS: ONDANSETRON HCL 4 MG/2 ML VIAL IV PUSH PRN (20:40)
[2017-05-02] MEDS: PANTOPRAZOLE SODIUM 40 MG VIAL IV PUSH SCH (20:45)
[2017-05-03] MEDS: ONDANSETRON HCL 4 MG/2 ML VIAL IV PUSH PRN ×3 (02:20→20:29)
[2017-05-03] MEDS: ACETAMINOPHEN 1000 MG/100 ML 100 ML IV SCH ×4 (02:20→20:29)
[2017-05-03] MEDS: LACTATED RINGER'S 1000 ML INJ 1,000 ML IV SCH ×3 (02:21→20:30)
[2017-05-03] MEDS: SODIUM CHLOR 0.9% 1000 ML INJ 1,000 ML IV SCH ×2 (02:25→17:55)
[2017-05-03] MEDS: MORPHINE SULFATE 4 MG/ML INJ IV PUSH PRN ×3 (02:54→17:33)
[2017-05-03 03:24] VITALS: BP 92/53; PULSE 59; RESP 18; TEMP 97.5; O2SAT 98
[2017-05-03] MEDS: LEVOTHYROXINE SODIUM 112 MCG TAB PO SCH (06:50)
[2017-05-03] MEDS: LEVOTHYROXINE SODIUM 25 MCG TAB PO SCH (06:50)
[2017-05-03 08:00] VITALS: BP 109/58; PULSE 63; RESP 17; TEMP 97.4; O2SAT 99
--- NOTE | 2017-05-03 08:24 | RADRPT ---
EXAM DATE/TIME: 05/03/2017 07:55 [facility] COMPARISON: CT ABDOMEN & PELVIS W CONTRAST, May 02, 2017, 13:55. CHEST SINGLE AP, May 04, 2016, 12:05. INDICATIONS : Abdominal pain; evaluate for obstruction. MEDICAL HISTORY : Hypothyroidism. Hypertension. SURGICAL HISTORY : Cholecystectomy. section. Hernia repair. Small bowel resection. ENCOUNTER: Subsequent ACUITY: 1 month PAIN SCORE: 8/10 LOCATION: Abdomen. FINDINGS: Supine view of the abdomen demonstrates a large collection of gas within the mid abdomen measuring 14 .9 cm in transverse dimension. This is mildly increased in size compared to the patient's CT examinat ion of 05/02/17. This is at the region of the surgical anastomosis. There is thickened bowel immediate ly adjacent to this. There are several other loops of thickened, distended loops of small bowel in the left abdomen as wel l. On the upright examination there are air-fluid levels. The study would suggest possible bowel obst ruction. No free intraperitoneal air is seen. The visualized lung bases are clear. CONCLUSION: 1. There are postsurgical changes within the abdomen. There is a focal dilated loop of bowel adjacent to the surgical sutures measuring approximately 15 cm in superior-inferior dimension this is increas ed in size when compared to previous exam. There are several thickened loops of bowel within the abdo men as well. The study is concerning for bowel obstruction. Blu Nickerson MD on May 03, 2017 at 8:20 Board Certified Radiologist. This report was verified electronically.
[2017-05-03] MEDS: SODIUM CHLORIDE 0.9% FLUSH 10 ML FLUSH IV FLUSH SCH ×2 (09:00→20:45)
[2017-05-03] MEDS: PANTOPRAZOLE SODIUM 40 MG VIAL IV PUSH SCH (09:53)
[2017-05-03] MEDS: FERROUS FUMARATE 325 MG TAB (106 MG ELEMENTAL IRON) PO SCH ×2 (10:09→22:20)
[2017-05-03 11:34] LABS: AUTOMATED NEUTROPHIL # 3.7 TH/MM3 (1.8-7.7); BASOPHIL % 0.3 % (0.0-2.0); EOSINOPHIL % 0.7 % (0.0-4.0); HEMATOCRIT 31.1 % (35.0-46.0); HEMO FLAGS DIFF FINAL; LYMPHOCYTE # 1.3 TH/MM3 (1.0-4.8); MEAN CELL VOLUME 87.8 FL (80.0-100.0); MEAN CORPUSCULAR HEMOGLOBIN 29.1 PG (27.0-34.0); MEAN CORPUSCULAR HGB CONC 33.1 % (32.0-36.0); MONO % 9.5 % (0.0-8.0); NEUT % 66.5 % (16.0-70.0); PLATELET COUNT 276 TH/MM3 (150-450); RED BLOOD COUNT 3.55 MIL/MM3 (4.00-5.30); RED CELL DISTRIBUTION WIDTH 14.1 % (11.6-17.2); WHITE BLOOD COUNT 5.6 TH/MM3 (4.0-11.0)
[2017-05-03 11:47] LABS: BICARBONATE 27.7 MEQ/L (21.0-32.0); POTASSIUM 3.4 MEQ/L (3.5-5.1)
[2017-05-03 12:00] VITALS: BP 94/50; PULSE 56; RESP 18; TEMP 97.8; O2SAT 98
--- NOTE | 2017-05-03 15:55 | HHI.PR ---
Subjective Subjective Notes Ambulating in room Objective Vitals/I&O Vital Signs Date Time Temp Pulse Resp B/P (MAP) Pulse Ox O2 Delivery O2 Flow Rate FiO2 05/03/17 12:00 97.8 56 18 94/50 (65) 98 05/02/17 16:56 Room Air Labs Laboratory Tests Test 05/02/17 16:05 05/03/17 10:39 Urine Collection Type CLEAN CATCH Urine Color YELLOW Urine Turbidity CLEAR Urine pH 7.5 Urine Specific [place] GREATER THAN 1.035 Urine Protein NEG Urine Glucose (UA) NEG Urine Ketones NEG Urine Occult Blood TRACE Urine Nitrite NEG Urine Bilirubin NEG Urine Leukocyte Esterase NEG Urine Squamous Epithelial Cells 0-5 Microscopic Urinalysis Comment CULT NOT INDICATED White Blood Count 5.6 Red Blood Count 3.55 Hemoglobin 10.3 Hematocrit 31.1 Mean Corpuscular Volume 87.8 Mean Corpuscular Hemoglobin 29.1 Mean Corpuscular Hemoglobin Concent 33.1 Red Cell Distribution Width 14.1 Platelet Count 276 Mean Platelet Volume 7.2 Neutrophils (%) (Auto) 66.5 Lymphocytes (%) (Auto) 23.0 Monocytes (%) (Auto) 9.5 Eosinophils (%) (Auto) 0.7 Basophils (%) (Auto) 0.3 Neutrophils # (Auto) 3.7 Lymphocytes # (Auto) 1.3 Monocytes # (Auto) 0.5 Eosinophils # (Auto) 0.0 Basophils # (Auto) 0.0 CBC Comment DIFF FINAL Differential Comment Blood Urea Nitrogen 11 Creatinine 0.69 Random Glucose 80 Calcium Level 8.6 Sodium Level 138 Potassium Level 3.4 Chloride Level 104 Carbon Dioxide Level 27.7 Anion Gap 6 Estimat Glomerular Filtration Rate 107 Cardiovascular: Regular Lungs: Clear Abdomen: Non-tender, Other (large palpable seroma in pelvis; serveral laparoscopic scars and midline scar---all well healed) Extremities: No edema A/P Assessment and Plan 56 year old female with abdominal pain; ? SBO -KUB reviewed -Clear liquids -UGI with SBFT tomorrow -IVF -Labs reviewed---unremarkable Attending Statement Pt seen this evening by me. She c/o upper abdominal pain and persistent nausea. She had emesis this morning. Her abdomen remains soft and minimally tender, no rebound or guarding. Plan is for UGI SBFT, if not improved may need ex lap extensive adhesiolysis, possible bowel resection. This will likely be a lengthy procedure due to her multiple prior surgeries and h/o extensive adhesions. She additionally has a 20 cm seromatous fluid collection in her SQ tissue which should be addressed. She understands the complexity of her situation. She remains HD stable, has no sign of sepsis, and agrees with plans for additional work up. The exam, history, and the medical decision-making described in the above note were completed with the assistance of the mid-level provider. I reviewed and agree with the findings presented. I attest that I had a [id number] encounter with the patient on the same day, and personally performed and documented my assessment and findings in the medical record. Luciana Carranza May 03, 2017 15:55 Sukh Topete MD May 03, 2017 18:05
[2017-05-03 16:00] VITALS: BP 99/56; PULSE 60; RESP 18; TEMP 97.4; O2SAT 99
[2017-05-03] MEDS: GABAPENTIN 300 MG CAP PO SCH (20:29)
[2017-05-03 20:51] VITALS: BP 118/62; PULSE 63; RESP 18; TEMP 98.1; O2SAT 100
[2017-05-03] MEDS: EMTRICITABINE/TENOFOVIR 200 MG/300 MG TAB PO SCH (22:20)
[2017-05-04 00:31] VITALS: BP 146/84; PULSE 65; RESP 18; TEMP 97.6; O2SAT 98
[2017-05-04] MEDS: MORPHINE SULFATE 4 MG/ML INJ IV PUSH PRN ×2 (00:37→08:15)
[2017-05-04] MEDS: ACETAMINOPHEN 1000 MG/100 ML 100 ML IV SCH ×4 (01:27→20:07)
[2017-05-04] MEDS: LACTATED RINGER'S 1000 ML INJ 1,000 ML IV SCH ×3 (03:09→20:07)
[2017-05-04] MEDS: LEVOTHYROXINE SODIUM 25 MCG TAB PO SCH (05:45)
[2017-05-04] MEDS: LEVOTHYROXINE SODIUM 112 MCG TAB PO SCH (05:45)
[2017-05-04] MEDS: SODIUM CHLOR 0.9% 1000 ML INJ 1,000 ML IV SCH ×2 (07:15→20:35)
[2017-05-04 07:58] VITALS: BP 116/79; PULSE 68; RESP 18; TEMP 97.7; O2SAT 98
[2017-05-04] MEDS: ONDANSETRON HCL 4 MG/2 ML VIAL IV PUSH PRN ×3 (08:15→20:07)
[2017-05-04] MEDS: PANTOPRAZOLE SODIUM 40 MG VIAL IV PUSH SCH (08:15)
[2017-05-04] MEDS: FERROUS FUMARATE 325 MG TAB (106 MG ELEMENTAL IRON) PO SCH ×3 (08:15→21:00)
[2017-05-04] MEDS: SODIUM CHLORIDE 0.9% FLUSH 10 ML FLUSH IV FLUSH SCH ×2 (08:16→20:09)
[2017-05-04] MEDS ORDERED: DIATRIZOATE MEGLUM/DIATRIZOATE SOD 120 ML BTL (for RAD DIAG) PO ONE (09:15)
[2017-05-04 11:30] VITALS: BP 137/78; PULSE 73; RESP 18; TEMP 97.4; O2SAT 98
[2017-05-04] MEDS ORDERED: MAGNESIUM CITRATE SOLN 300 ML BTL PO ONE ×2 (12:00→18:00)
--- NOTE | 2017-05-04 12:47 | RADRPT ---
EXAM DATE/TIME: 05/04/2017 08:57 [facility] COMPARISON: CT ABDOMEN & PELVIS W CONTRAST, May 02, 2017, 13:55. INDICATIONS : Diffuse abdominal pain, nausea and vomiting for 2 days FLUORO TIME: 1.5 minutes IMAGE COUNT: 10 CONTRAST: MD Pelayo IMAGING TIME(S): 15 min, 2 hrs MEDICAL HISTORY : small bowel obstruction SURGICAL HISTORY : section. repair of bowel obstrucion, hernia repair ENCOUNTER: Subsequent ACUITY: 2 days PAIN SCORE: 10/10 LOCATION: Bilateral abdomen FINDINGS: The preliminary doctor of osteopathy film continue to demonstrate an obstructive small bowel process with proximal s mall bowel ileus and a large air-filled cystic structure in the right mid abdomen. The patient was able to ingest a small amount of Gastrografin which demonstrated a normal-appearing e sophagus and gastroesophageal junction. Free flow into the stomach is noted. The antrum of the stomach is elevated and effaced by the cystic air collection. When compared to the CT the cystic air collection represents an enterocolonic anastom osis which leads to an internal volvulus causing obstruction. Due to the obstruction the patient was unable to retain the contrast. This is resulted in prompt empt pooja of the stomach. Minimal opacification of proximal jejunum was achieved. CONCLUSION: Proximal small bowel ileus secondary to an obstructing process as indicated by CT. Small bowel opacification was suboptimal due to emesis. Esophagus and stomach are unremarkable. Andrey Garcia MD on May 04, 2017 at 12:33 Board Certified Radiologist. This report was verified electronically.
--- NOTE | 2017-05-04 14:32 | HHI.PR ---
Subjective Subjective Notes Ambulating in room Daughter at bedside Objective Vitals/I&O Vital Signs Date Time Temp Pulse Resp B/P (MAP) Pulse Ox O2 Delivery O2 Flow Rate FiO2 05/04/17 11:30 97.4 73 18 137/78 (97) 98 05/02/17 16:56 Room Air Cardiovascular: Regular Lungs: Clear Abdomen: Other (tender throughout abdomen; large hard pelvic seroma ) Extremities: No edema A/P Assessment and Plan 56 year old female with abdominal pain; SBO -UGI/SBFT reviewed -Plan for OR tomorrow AM for exploratory laparotomy -Obtain consents -Okay for ice chips/popsicles/sips of water; NPO after MN -Hold anticoagulation -Check labs -Continue IVF Attending Statement UGI SBFT basically abandoned due to vomiting. Pt with intolerance to oral intake and likely adhesional obstruction. D/W daughter, patient, and patient's Mom recommendations for surgical exploration. They understand and wish to proceed. Surgery in AM. Luciana Carranza May 04, 2017 14:32 Sukh Topete MD May 05, 2017 08:08
[2017-05-04 15:35] VITALS: BP 143/90; PULSE 74; RESP 16; TEMP 98.3; O2SAT 98
[2017-05-04 17:46] LABS: AUTOMATED NEUTROPHIL # 7.2 TH/MM3 (1.8-7.7); BASOPHIL % 0.2 % (0.0-2.0); EOSINOPHIL % 0.2 % (0.0-4.0); HEMATOCRIT 34.8 % (35.0-46.0); HEMO FLAGS DIFF FINAL; LYMPH % 10.5 % (9.0-44.0); LYMPHOCYTE # 0.9 TH/MM3 (1.0-4.8); MEAN CELL VOLUME 87.9 FL (80.0-100.0); MEAN CORPUSCULAR HEMOGLOBIN 29.1 PG (27.0-34.0); MEAN CORPUSCULAR HGB CONC 33.1 % (32.0-36.0); NEUT % 82.1 % (16.0-70.0); PLATELET COUNT 339 TH/MM3 (150-450); RED BLOOD COUNT 3.96 MIL/MM3 (4.00-5.30); RED CELL DISTRIBUTION WIDTH 13.6 % (11.6-17.2); WHITE BLOOD COUNT 8.7 TH/MM3 (4.0-11.0)
[2017-05-04 17:55] LABS: BICARBONATE 24.2 MEQ/L (21.0-32.0); POTASSIUM 3.2 MEQ/L (3.5-5.1)
[2017-05-04] MEDS ORDERED: BISACODYL EC 5 MG TABEC PO ONE ×2 (18:00→21:00)
[2017-05-04 19:55] VITALS: BP 151/72; PULSE 62; RESP 18; TEMP 98.3; O2SAT 99
[2017-05-04] MEDS: GABAPENTIN 300 MG CAP PO SCH (21:00)
[2017-05-04] MEDS ORDERED: ONDANSETRON HCL 4 MG/2 ML VIAL IV PUSH ONE (21:00)
[2017-05-04] MEDS ORDERED: LACTATED RINGER'S 1000 ML IV PRN (21:00)
[2017-05-04] MEDS ORDERED: INSULIN HUMAN REGULAR 1,000 UNITS/10 ML VIAL SQ PRN (21:00)
[2017-05-04] MEDS ORDERED: METOPROLOL TARTRATE 25 MG TAB PO PRN (21:00)
[2017-05-04] MEDS ORDERED: SODIUM CHLORID 0.9% 500 ML IV PRN (21:00)
[2017-05-04] MEDS ORDERED: CHLORHEXIDINE GLUCONATE 2 % 1 PACK (2 CLOTHS) TOPICAL PRN (21:00)
[2017-05-04] MEDS: EMTRICITABINE/TENOFOVIR 200 MG/300 MG TAB PO SCH (21:00)
[2017-05-04] MEDS ORDERED: POVIDONE IODINE 5% (ANTISEPSIS KIT) 4 APPLICATIONS EACH NARE PRN (21:00)
[2017-05-04] MEDS: PROMETHAZINE INJ 25 MG/ML VIAL IM PRN (23:22)
[2017-05-04 23:26] VITALS: BP 151/76; PULSE 70; RESP 18; TEMP 97.8; O2SAT 94
[2017-05-04] MEDS: POTASSIUM CHLOR 20 MEQ PREMIX 100 ML IV SCH (23:35)
[2017-05-05] VITALS (7 sets, daily range): BP systolic 82–130; BP diastolic 52–73; PULSE 74–103; RESP 16–18; TEMP 97.3–98.9; O2SAT 95–99
[2017-05-05] MEDS: POTASSIUM CHLOR 20 MEQ PREMIX 100 ML IV SCH (01:45)
[2017-05-05] MEDS: ACETAMINOPHEN 1000 MG/100 ML 100 ML IV SCH ×4 (01:45→21:12)
[2017-05-05] MEDS: ONDANSETRON HCL 4 MG/2 ML VIAL IV PUSH PRN (01:46)
[2017-05-05] MEDS: MORPHINE SULFATE 4 MG/ML INJ IV PUSH PRN (02:58)
[2017-05-05] MEDS: PROMETHAZINE INJ 25 MG/ML VIAL IM PRN (02:58)
[2017-05-05] MEDS: LEVOTHYROXINE SODIUM 25 MCG TAB PO SCH (05:28)
[2017-05-05] MEDS: LEVOTHYROXINE SODIUM 112 MCG TAB PO SCH (05:28)
[2017-05-05] MEDS: FERROUS FUMARATE 325 MG TAB (106 MG ELEMENTAL IRON) PO SCH ×2 (09:00→21:11)
[2017-05-05] MEDS: PANTOPRAZOLE SODIUM 40 MG VIAL IV PUSH SCH (09:00)
[2017-05-05] MEDS: SODIUM CHLORIDE 0.9% FLUSH 10 ML FLUSH IV FLUSH SCH ×2 (09:00→21:12)
[2017-05-05] MEDS ORDERED: ceFAZolin 2 GM PREMIX 0 ML ONE (09:07)
[2017-05-05] MEDS ORDERED: metroNIDAZOLE 500 MG INJ 100 ML IV ONE ×2 (09:07→09:18)
[2017-05-05] MEDS ORDERED: ceFAZolin 2 GM PREMIX 50 ML IV ONE (09:13)
[2017-05-05] MEDS ORDERED: NALOXONE HCL 0.4 MG/ML AMP IV PUSH PRN (11:15)
[2017-05-05] MEDS ORDERED: SODIUM CHLORIDE 0.9% FLUSH 5 ML FLUSH IVF PRN (11:15)
[2017-05-05] MEDS ORDERED: Post-op Orders (for Pharmacy) MISC XX ONE (11:15)
[2017-05-05] MEDS ORDERED: diphenhydrAMINE HCL 25 MG CAP PO PRN (11:15)
[2017-05-05] MEDS ORDERED: KETOROLAC TROMETHAMINE 30 MG/ML (IVP) VIAL IVP PRN (11:15)
[2017-05-05] MEDS: D5-NS + KCL 20 MEQ INJ 1,000 ML IV SCH ×2 (11:15→19:05)
[2017-05-05] MEDS ORDERED: DO NOT ADM ANY ANTICOAGULANT DRUGS PRN (11:16)
[2017-05-05] MEDS ORDERED: *morphine SULFATE 8 MG/ML PERIprocedure ONLY ONE (11:25)
--- NOTE | 2017-05-05 11:51 | MP ---
cc: JAMES RAUSCH M.D., JOEL RAMSHAW,ANABEL MULTANI,ROD Sepulveda M.D. DATE OF SURGERY 05/05/2017 PREOPERATIVE DIAGNOSIS 1. Small bowel obstruction. 2. Approximate 20 cm subcutaneous seromatous mass. POSTOPERATIVE DIAGNOSES 1. Small bowel obstruction. 2. Approximate 20 cm subcutaneous seromatous mass. 3. Dilated small bowel to small bowel anastomosis PROCEDURE 1. Excision of skin, subcutaneous fat and approximate 20 cm diameter seromatous mass. 2. Exploratory laparotomy with adhesiolysis. Resection of small bowel to small bowel anastomosis. ESTIMATED BLOOD LOSS Less than [address] Anabel Topete FISHER DIVING Dr. Singh Hardy ANESTHESIA General INDICATIONS FOR THE PROCEDURE Marianne Amanda is a 56-year-old -Citizen Of [place] woman HIV positive who has had multiple previous abdominal surgeries. She underwent exploratory laparotomy, extensive adhesiolysis and repair of a ventral incisional hernia with AlloDerm onlay mesh by Dr. Multani in 2007. In 2014 and 2015, she underwent three Operative procedures by Dr. Akhil Mcfarland, laparoscopy with repair of ventral incisional hernia and then eventually open repair of a hernia with mesh onlay with a polypropylene mesh. The patient has experienced acute onset of abdominal pain, nausea and emesis. A CT scan was worrisome for a closed loop obstruction. The patient's clinical exam and laboratory evaluations were not consistent with a closed loop obstruction. She was admitted for IV hydration and further evaluation. She continued to have pain, nausea and emesis and recommendations were made for surgical exploration. The large seromatous mass was to be excised and she was in favor of this. INTRAOPERATIVE FINDINGS A large seromatous mass removed with skin and subcutaneous tissue including her umbilicus via an elliptical low incision. The abdominal wall was intact. There were minimal intra-abdominal adhesions. There were some interloop adhesions causing some areas of narrowing, but no obvious point of obstruction and no evidence of closed loop obstruction. She did have a dilated jejunojejunal anastomosis which was resected and sent to pathology. Seprafilm was used. ESTIMATED BLOOD LOSS Again is less than 10. DESCRIPTION OF PROCEDURE IN DETAIL The patient was identified as Marianne Amanda, taken to the operating room, placed in the supine position. Sequential compression devices were placed on bilateral lower extremities. Following induction of adequate general endotracheal anesthesia, a Castle catheter was placed and the patient's abdomen was prepped and draped in the usual sterile fashion with Betadine. A time-out procedure was performed. Following completion of time-out procedure to everyone's satisfaction within the room, the proposed elliptical incision including the umbilicus and this large subcutaneous seromatous mass was made with a marking pen. The incision was carried out with a scalpel and hemostasis controlled with electrocautery. The subcutaneous fatty tissue and scar were excised from surrounding this large subcutaneous mass down to the level of the abdominal wall. The mass was removed in its entirety and passed off the field for pathologic evaluation. Subcutaneous fatty tissue was then relieved from the upper midline fascia. The fascia was incised vertically and entry into peritoneal cavity was facilitated with electrocautery. There were no adhesions of bowel or omentum to the anterior abdominal wall. There is a small amount of intraabdominal fluid. The fascial incision was opened the length of the exposed abdominal wall and the small bowel was brought out onto the surgical field. A large dilated ileojejunal anastomosis was identified. Small bowel was run proximally all way to the ligament of Treitz. There were several areas of interloop adhesions and mild narrowing, but no evidence of closed loop obstruction and the adhesions were taken down with sharp dissection Metzenbaum scissors. The colon appeared normal. The omentum appeared normal. An orogastric tube in the stomach was palpated and the dilated bowel was milked back "to the stomach and about 1100 cc of bilious fluid and air were retrieved." The dilated anastomosis was resected using the linear cutting stapling device, the TX stapling device and 3-0 silk sutures. Mesenteric defect, which the mesenteric vessels were ligated with 2-0 Vicryl ties and 3-0 silk suture ligatures, was approximated with 3-0 silk. 3-0 silk sutures were used to imbricate staple lines and to take pressure off the proximal staple line. The anastomosis appeared intact and patent and without tension and with good blood supply. The small bowel was returned to its normal anatomic position. The omentum was draped over the small bowel. A third piece of Seprafilm was placed over denuded areas of the mesentery where adhesiolysis had been performed. Additional Seprafilm was placed over the omentum beneath the midline incision. The midline fascial incision was closed with running #1 single stranded PDS suture. The subcutaneous layer was irrigated copiously with saline. It was imbricated with multiple interrupted 2-0 Vicryl sutures and a single 10-mm flat fluted drain was placed in the subcutaneous space through a separate stab incision in the right midabdomen and held in place at the level of the skin with a 3-0 nylon drain stitch. Several layers of the 2-0 Vicryl were used to close the space. Skin was approximated with surgical lolis and a Anne-Marie dressing was placed in the standard fashion. The patient tolerated the procedure without apparent complication. Sponge, needle and instrument counts were correct at the end of the case. MD GWEN Glynn/PITA /11:18 AM /11:33 AM
[2017-05-05] MEDS ORDERED: PROPOFOL 200 MG/20 ML AMP IV ONE (12:00)
[2017-05-05] MEDS ORDERED: ePHEDrine/NS 25 MG/5 ML SYR IV ONE (12:00)
[2017-05-05] MEDS ORDERED: ceFAZolin INJ 1,000 MG VIAL IV ONE (12:00)
[2017-05-05] MEDS ORDERED: GLYCOPYRROLATE 1 MG/5 ML SYRINGE IV PUSH ONE (12:00)
[2017-05-05] MEDS ORDERED: SUCCINYLCHOLINE CHLORIDE 100 MG/5 ML SYRINGE IV PUSH ONE (12:00)
[2017-05-05] MEDS ORDERED: LACTATED RINGER'S 1000 ML INJ 1,000 ML IV ONE (12:00)
[2017-05-05] MEDS ORDERED: MIDAZOLAM HCL 2 MG/2 ML VIAL IV ONE (12:00)
[2017-05-05] MEDS ORDERED: SODIUM CHLOR 0.9% 1000 ML INJ 1,000 ML IV ONE (12:00)
[2017-05-05] MEDS ORDERED: LIDOCAINE HCL 1% PF 5 ML AMPULE OTHER ONE (12:00)
[2017-05-05] MEDS ORDERED: DEXAMETHASONE SOD PHOS 4 MG/ML VIAL IV ONE (12:00)
[2017-05-05] MEDS ORDERED: NEOSTIGMINE 3 MG/3 ML SYR IV ONE (12:00)
[2017-05-05] MEDS ORDERED: ONDANSETRON HCL 4 MG/2 ML VIAL IV PUSH ONE (12:00)
[2017-05-05] MEDS ORDERED: PHENYLEPH/NS 1000 MCG/10 ML SYR IV ONE (12:00)
[2017-05-05] MEDS ORDERED: KETOROLAC TROMETHAMINE 30 MG/ML (IVP) VIAL IV PUSH ONE (12:00)
[2017-05-05] MEDS ORDERED: ROCURONIUM INJ 50 MG/5 ML SYRINGE IV PUSH ONE (12:00)
[2017-05-05] MEDS: MORPHINE SULFATE 30 MG/30 ML PCA IV SCH ×2 (12:22→15:54)
[2017-05-05] MEDS: PCA - TOTAL MG MORPHINE DELIVERED PER SHIFT SCH ×2 (14:00→20:47)
[2017-05-05] MEDS: SODIUM CHLORIDE 0.9% FLUSH 10 ML FLUSH IV FLUSH PRN (15:02)
[2017-05-05] MEDS: SODIUM CHLORIDE 0.9% FLUSH 5 ML FLUSH IVF SCH (21:00)
[2017-05-05] MEDS: GABAPENTIN 300 MG CAP PO SCH (21:11)
[2017-05-05] MEDS: EMTRICITABINE/TENOFOVIR 200 MG/300 MG TAB PO SCH (21:11)
--- NOTE | 2017-05-05 23:40 | EKG ---
Date Performed: 05/04/2017 Time Performed: 21:04:10 PTAGE: 56 years EKG: Sinus rhythm NON-SPECIFIC ST/T WAVE CHANGES PREVIOUS TRACING : 08/22/2015 21.24 Compared to prior tracing no significant change DOCTOR: Siva Alfredo Interpretating Date/Time 05/05/2017 23:39:55
[2017-05-06] VITALS (8 sets, daily range): BP systolic 70–122; BP diastolic 49–69; PULSE 95–101; RESP 18–28; TEMP 97.8–99.6; O2SAT 96–98
[2017-05-06] MEDS ORDERED: SODIUM CHLORID 0.9% 500 ML INJ 500 ML IV ONE (00:15)
[2017-05-06] MEDS: ACETAMINOPHEN 1000 MG/100 ML 100 ML IV SCH ×4 (02:00→21:41)
[2017-05-06 02:20] LABS: AUTOMATED NEUTROPHIL # 9.2 TH/MM3 (1.8-7.7); BASOPHIL % 0.2 % (0.0-2.0); EOSINOPHIL % 0.1 % (0.0-4.0); HEMATOCRIT 31.4 % (35.0-46.0); HEMO FLAGS DIFF FINAL; LYMPH % 10.4 % (9.0-44.0); LYMPHOCYTE # 1.2 TH/MM3 (1.0-4.8); MEAN CORPUSCULAR HEMOGLOBIN 29.6 PG (27.0-34.0); MEAN CORPUSCULAR HGB CONC 33.7 % (32.0-36.0); MONO % 9.2 % (0.0-8.0); NEUT % 80.1 % (16.0-70.0); PLATELET COUNT 290 TH/MM3 (150-450); RED BLOOD COUNT 3.56 MIL/MM3 (4.00-5.30); RED CELL DISTRIBUTION WIDTH 13.7 % (11.6-17.2); WHITE BLOOD COUNT 11.5 TH/MM3 (4.0-11.0)
[2017-05-06 02:43] LABS: ALKALINE PHOSPHATASE 84 U/L (45-117); ALT (GPT) 19 U/L (10-53); ANION GAP 6 MEQ/L (5-15); AST (GOT) 15 U/L (15-37); BICARBONATE 23.8 MEQ/L (21.0-32.0); BLOOD UREA NITROGEN 15 MG/DL (7-18); CHLORIDE 110 MEQ/L (98-107); GLOMERULAR FILTRATION RATE 67 ML/MIN (>89); POTASSIUM 3.9 MEQ/L (3.5-5.1); SODIUM (NA) 140 MEQ/L (136-145); TOTAL BILIRUBIN ADULT 0.4 MG/DL (0.2-1.0)
[2017-05-06] MEDS: D5-NS + KCL 20 MEQ INJ 1,000 ML IV SCH ×3 (03:05→18:15)
[2017-05-06] MEDS ORDERED: SODIUM CHLOR 0.9% 1000 ML INJ 1,000 ML IV ONE (05:30)
[2017-05-06] MEDS: PCA - TOTAL MG MORPHINE DELIVERED PER SHIFT SCH ×3 (05:48→21:52)
[2017-05-06] MEDS: LEVOTHYROXINE SODIUM 112 MCG TAB PO SCH (05:50)
[2017-05-06] MEDS: LEVOTHYROXINE SODIUM 25 MCG TAB PO SCH (05:50)
--- NOTE | 2017-05-06 08:13 | HHI.PR ---
Subjective Subjective Notes feels pretty well. Pain well controlled. No dizziness, no lightheadedness. Treated with 1 1/2 liter of bolus IVF last night for SBP in the seventies. Had good UOP, was asymptomatic. No chest pain. Objective Vitals/I&O Vital Signs Date Time Temp Pulse Resp B/P (MAP) Pulse Ox O2 Delivery O2 Flow Rate FiO2 05/06/17 05:48 18 05/06/17 05:28 82/49 (60) 05/06/17 03:03 97.8 95 96 05/05/17 12:15 Nasal Cannula 3 Labs Laboratory Tests Test 05/06/17 01:46 White Blood Count 11.5 Red Blood Count 3.56 Hemoglobin 10.6 Hematocrit 31.4 Mean Corpuscular Volume 88.0 Mean Corpuscular Hemoglobin 29.6 Mean Corpuscular Hemoglobin Concent 33.7 Red Cell Distribution Width 13.7 Platelet Count 290 Mean Platelet Volume 7.2 Neutrophils (%) (Auto) 80.1 Lymphocytes (%) (Auto) 10.4 Monocytes (%) (Auto) 9.2 Eosinophils (%) (Auto) 0.1 Basophils (%) (Auto) 0.2 Neutrophils # (Auto) 9.2 Lymphocytes # (Auto) 1.2 Monocytes # (Auto) 1.1 Eosinophils # (Auto) 0.0 Basophils # (Auto) 0.0 CBC Comment DIFF FINAL Differential Comment Blood Urea Nitrogen 15 Creatinine 1.04 Random Glucose 121 Total Protein 5.8 Albumin 2.3 Calcium Level 7.6 Alkaline Phosphatase 84 Aspartate Amino Transf (AST/SGOT) 15 Alanine Aminotransferase (ALT/SGPT) 19 Total Bilirubin 0.4 Sodium Level 140 Potassium Level 3.9 Chloride Level 110 Carbon Dioxide Level 23.8 Anion Gap 6 Estimat Glomerular Filtration Rate 67 Cardiovascular: Regular Lungs: Clear Abdomen: Other (mildly distended. BS present. ZHOU intact. Drain with mild serosanguinous drainage, not bloody.), Post-op tenderness Extremities: No edema, Perfused, SCD's on A/P Assessment and Plan POD 1 s/p excision large SQ seromatous mass, exp lap adhesiolysis, resection of dilated SB anastomosis. Moderate hypotension, likely related to dehydration. No evidence of bleeding. Asymptomatic. Provide an additional liter of fluid. Get OOB today- she walked to bathroom last night. Follow labs, obtain EKG. Dany. filipe. Sukh Topete MD May 06, 2017 08:12
[2017-05-06] MEDS ORDERED: DEXTROSE 5% IN WATE 500 ML INJ 500 ML IV ONE (08:15)
[2017-05-06] MEDS: FERROUS FUMARATE 325 MG TAB (106 MG ELEMENTAL IRON) PO SCH ×2 (08:57→21:41)
[2017-05-06] MEDS: PANTOPRAZOLE SODIUM 40 MG VIAL IV PUSH SCH (08:58)
[2017-05-06] MEDS: SODIUM CHLORIDE 0.9% FLUSH 5 ML FLUSH IVF SCH ×2 (08:58→21:41)
[2017-05-06] MEDS: SODIUM CHLORIDE 0.9% FLUSH 10 ML FLUSH IV FLUSH SCH ×2 (08:58→21:40)
[2017-05-06] MEDS: BETHANECHOL CHL 10 MG TAB PO SCH ×3 (11:41→23:42)
--- NOTE | 2017-05-06 13:12 | EKG ---
Date Performed: 05/06/2017 Time Performed: 11:23:47 PTAGE: 56 years EKG: Sinus rhythm T-WAVE ABNORMALITY, CONSIDER ANTERIOR ISCHEMIA ABNORMAL ECG PREVIOUS TRACING : 05/04/2017 21.04 No significant change from previous tracing noted. DOCTOR: Jb Díaz Interpretating Date/Time 05/06/2017 13:10:55
[2017-05-06] MEDS: ONDANSETRON HCL 4 MG/2 ML VIAL IV PUSH PRN (14:08)
[2017-05-06] MEDS: METOCLOPRAMIDE HCL 10 MG/2 ML VIAL IV PUSH SCH (18:10)
[2017-05-06] MEDS: SODIUM CHLORIDE 0.9% FLUSH 10 ML FLUSH IV FLUSH PRN (21:41)
[2017-05-06] MEDS: EMTRICITABINE/TENOFOVIR 200 MG/300 MG TAB PO SCH (21:41)
[2017-05-06] MEDS: GABAPENTIN 300 MG CAP PO SCH (21:41)
[2017-05-06] MEDS: MORPHINE SULFATE 30 MG/30 ML PCA IV SCH (22:29)
[2017-05-07] VITALS (7 sets, daily range): BP systolic 91–122; BP diastolic 54–76; PULSE 83–101; RESP 15–20; TEMP 97–99.7; O2SAT 96–100
[2017-05-07] MEDS: BETHANECHOL CHL 10 MG TAB PO SCH ×4 (00:36→18:22)
[2017-05-07] MEDS: ACETAMINOPHEN 1000 MG/100 ML 100 ML IV SCH ×4 (01:50→19:48)
[2017-05-07] MEDS: METOCLOPRAMIDE HCL 10 MG/2 ML VIAL IV PUSH SCH ×3 (01:50→18:22)
[2017-05-07] MEDS: D5-NS + KCL 20 MEQ INJ 1,000 ML IV SCH ×3 (01:50→20:01)
[2017-05-07] MEDS: LEVOTHYROXINE SODIUM 25 MCG TAB PO SCH (04:07)
[2017-05-07] MEDS: LEVOTHYROXINE SODIUM 112 MCG TAB PO SCH (04:07)
[2017-05-07] MEDS: PCA - TOTAL MG MORPHINE DELIVERED PER SHIFT SCH ×3 (04:11→21:43)
[2017-05-07 07:44] LABS: AUTOMATED NEUTROPHIL # 9.8 TH/MM3 (1.8-7.7); BASOPHIL % 0.2 % (0.0-2.0); EOSINOPHIL # 0.2 TH/MM3 (0-0.4); EOSINOPHIL % 1.4 % (0.0-4.0); HEMO FLAGS DIFF FINAL; LYMPHOCYTE # 1.4 TH/MM3 (1.0-4.8); MEAN CELL VOLUME 88.3 FL (80.0-100.0); MEAN CORPUSCULAR HEMOGLOBIN 29.6 PG (27.0-34.0); MEAN CORPUSCULAR HGB CONC 33.5 % (32.0-36.0); MONO % 9.6 % (0.0-8.0); NEUT % 77.8 % (16.0-70.0); PLATELET COUNT 258 TH/MM3 (150-450); RED BLOOD COUNT 3.17 MIL/MM3 (4.00-5.30); RED CELL DISTRIBUTION WIDTH 14.2 % (11.6-17.2); WHITE BLOOD COUNT 12.5 TH/MM3 (4.0-11.0)
[2017-05-07] MEDS: SODIUM CHLORIDE 0.9% FLUSH 10 ML FLUSH IV FLUSH SCH ×2 (08:21→19:50)
[2017-05-07] MEDS: PANTOPRAZOLE SODIUM 40 MG VIAL IV PUSH SCH (08:21)
[2017-05-07] MEDS: FERROUS FUMARATE 325 MG TAB (106 MG ELEMENTAL IRON) PO SCH ×2 (08:21→19:49)
[2017-05-07] MEDS: SODIUM CHLORIDE 0.9% FLUSH 5 ML FLUSH IVF SCH ×2 (08:21→20:00)
[2017-05-07 08:25] LABS: BICARBONATE 21.6 MEQ/L (21.0-32.0); POTASSIUM 3.5 MEQ/L (3.5-5.1)
--- NOTE | 2017-05-07 11:14 | HHI.PR ---
Subjective Subjective Notes Up in chair. Nausea. No flatus or BM. Says she feels much better than preop. Has not walked halls yet. Objective Vitals/I&O Vital Signs Date Time Temp Pulse Resp B/P (MAP) Pulse Ox O2 Delivery O2 Flow Rate FiO2 05/07/17 09:29 Nasal Cannula 05/07/17 08:51 16 05/07/17 08:00 99.1 96 101/59 (73) 99 05/05/17 12:15 3 Labs Laboratory Tests Test 05/07/17 07:00 White Blood Count 12.5 Red Blood Count 3.17 Hemoglobin 9.4 Hematocrit 28.0 Mean Corpuscular Volume 88.3 Mean Corpuscular Hemoglobin 29.6 Mean Corpuscular Hemoglobin Concent 33.5 Red Cell Distribution Width 14.2 Platelet Count 258 Mean Platelet Volume 7.2 Neutrophils (%) (Auto) 77.8 Lymphocytes (%) (Auto) 11.0 Monocytes (%) (Auto) 9.6 Eosinophils (%) (Auto) 1.4 Basophils (%) (Auto) 0.2 Neutrophils # (Auto) 9.8 Lymphocytes # (Auto) 1.4 Monocytes # (Auto) 1.2 Eosinophils # (Auto) 0.2 Basophils # (Auto) 0.0 CBC Comment DIFF FINAL Differential Comment Blood Urea Nitrogen 14 Creatinine 0.67 Random Glucose 101 Total Protein 6.0 Calcium Level 7.4 Sodium Level 141 Potassium Level 3.5 Chloride Level 113 Carbon Dioxide Level 21.6 Anion Gap 6 Estimat Glomerular Filtration Rate 111 Protein Corrected Calcium 8.0 Cardiovascular: Regular Lungs: Clear Abdomen: Other (mildly distended, Few BSs. ZHOU dressing intact, minimal dried drainage. No erythema.), Post-op tenderness Extremities: No edema, Perfused A/P Assessment and Plan POD 2 s/p excision large SQ seromatous mass, exp lap adhesiolysis, resection of dilated SB anastomosis. Postop ileus, as expected. Must get up and walk. K on low side. Will give some K. She requests full liquids. Sukh Topete MD May 07, 2017 11:14
[2017-05-07] MEDS: ONDANSETRON HCL 4 MG/2 ML VIAL IV PUSH PRN (15:28)
[2017-05-07] MEDS: POTASSIUM CHLOR 20 MEQ PREMIX 100 ML IV SCH ×2 (15:28→18:22)
[2017-05-07] MEDS: EMTRICITABINE/TENOFOVIR 200 MG/300 MG TAB PO SCH (19:49)
[2017-05-07] MEDS: GABAPENTIN 300 MG CAP PO SCH (19:49)
[2017-05-07] MEDS: PROMETHAZINE INJ 25 MG/ML VIAL IM PRN (21:40)
[2017-05-08] VITALS: BP 118/76; PULSE 80; RESP 17; TEMP 98.7; O2SAT 96
[2017-05-08] MEDS: METOCLOPRAMIDE HCL 10 MG/2 ML VIAL IV PUSH SCH ×3 (00:16→18:03)
[2017-05-08] MEDS: ONDANSETRON HCL 4 MG/2 ML VIAL IV PUSH PRN (00:16)
[2017-05-08] MEDS: ACETAMINOPHEN 1000 MG/100 ML 100 ML IV SCH ×4 (00:17→20:31)
[2017-05-08 04:00] VITALS: BP 112/76; PULSE 82; RESP 17; TEMP 97; O2SAT 98
[2017-05-08] MEDS: LEVOTHYROXINE SODIUM 112 MCG TAB PO SCH (04:49)
[2017-05-08] MEDS: BETHANECHOL CHL 10 MG TAB PO SCH ×5 (04:49→23:55)
[2017-05-08] MEDS: LEVOTHYROXINE SODIUM 25 MCG TAB PO SCH (04:49)
[2017-05-08] MEDS: D5-NS + KCL 20 MEQ INJ 1,000 ML IV SCH (04:49)
[2017-05-08] MEDS: PCA - TOTAL MG MORPHINE DELIVERED PER SHIFT SCH ×3 (04:53→20:35)
[2017-05-08 08:00] VITALS: BP 113/67; PULSE 83; RESP 18; TEMP 97.7; O2SAT 100
[2017-05-08] MEDS: SODIUM CHLORIDE 0.9% FLUSH 5 ML FLUSH IVF SCH ×2 (09:00→20:31)
[2017-05-08] MEDS: FERROUS FUMARATE 325 MG TAB (106 MG ELEMENTAL IRON) PO SCH ×2 (09:37→20:34)
[2017-05-08] MEDS: PANTOPRAZOLE SODIUM 40 MG VIAL IV PUSH SCH (09:38)
[2017-05-08] MEDS: SODIUM CHLORIDE 0.9% FLUSH 10 ML FLUSH IV FLUSH SCH ×2 (09:39→20:28)
--- NOTE | 2017-05-08 09:41 | HHI.PR ---
Subjective Subjective Notes abdominal pain. Nausea with emesis last night. Had BM last night. Was up in chair 2 1/2 hours. Did not walk halls. Objective Vitals/I&O Vital Signs Date Time Temp Pulse Resp B/P (MAP) Pulse Ox O2 Delivery O2 Flow Rate FiO2 05/08/17 04:53 18 05/08/17 04:00 97.0 82 112/76 (88) 98 05/07/17 09:29 Nasal Cannula 21 05/05/17 12:15 3 Abdomen: Other (has BSs. ZHOU intact with minimal drainage. Less distended.), Post-op tenderness Extremities: No edema, Perfused A/P Assessment and Plan POD 3 s/p excision large SQ seromatous mass, exp lap adhesiolysis, resection of dilated SB anastomosis. Postop ileus, as expected. Must get up and walk. D/W pt, RN, and family, needs to walk halls today. Will add erythromycin as zoltan interacts with meds she takes. Will check abdominal xray. Sukh Topete MD May 08, 2017 09:41
[2017-05-08 12:00] VITALS: BP 105/61; PULSE 84; RESP 18; TEMP 97.9; O2SAT 100
[2017-05-08] MEDS ORDERED: ERYTHROMYCIN EC 250 MG TABEC PO SCH (12:00)
[2017-05-08 13:03] LABS: BASOPHIL % 0.4 % (0.0-2.0); EOSINOPHIL # 0.3 TH/MM3 (0-0.4); EOSINOPHIL % 2.4 % (0.0-4.0); HEMATOCRIT 30.8 % (35.0-46.0); HEMO FLAGS DIFF FINAL; LYMPH % 13.7 % (9.0-44.0); LYMPHOCYTE # 1.6 TH/MM3 (1.0-4.8); MEAN CELL VOLUME 89.1 FL (80.0-100.0); MEAN CORPUSCULAR HEMOGLOBIN 30.7 PG (27.0-34.0); MEAN CORPUSCULAR HGB CONC 34.4 % (32.0-36.0); MONO % 6.7 % (0.0-8.0); NEUT % 76.8 % (16.0-70.0); PLATELET COUNT 391 TH/MM3 (150-450); RED BLOOD COUNT 3.45 MIL/MM3 (4.00-5.30); RED CELL DISTRIBUTION WIDTH 14.1 % (11.6-17.2); WHITE BLOOD COUNT 11.7 TH/MM3 (4.0-11.0)
[2017-05-08 13:56] LABS: BICARBONATE 20.2 MEQ/L (21.0-32.0); MAGNESIUM 1.6 MG/DL (1.5-2.5); POTASSIUM 3.8 MEQ/L (3.5-5.1)
[2017-05-08 14:45] VITALS: BP 120/73; PULSE 78; RESP 18; TEMP 98.8; O2SAT 100
[2017-05-08] MEDS: MORPHINE SULFATE 30 MG/30 ML PCA IV SCH (18:01)
[2017-05-08] MEDS: MAGNESIUM SULFATE 1 GM PREMIX 100 ML IV SCH ×2 (19:17→20:28)
[2017-05-08 20:00] VITALS: BP 118/70; PULSE 81; RESP 20; TEMP 98.5; O2SAT 100
[2017-05-08] MEDS: GABAPENTIN 300 MG CAP PO SCH (20:28)
[2017-05-08] MEDS: EMTRICITABINE/TENOFOVIR 200 MG/300 MG TAB PO SCH (20:34)
[2017-05-09] VITALS: BP 121/72; PULSE 79; RESP 20; TEMP 99.9; O2SAT 99
[2017-05-09] MEDS: METOCLOPRAMIDE HCL 10 MG/2 ML VIAL IV PUSH SCH ×3 (01:20→17:54)
[2017-05-09] MEDS: D5-NS + KCL 20 MEQ INJ 1,000 ML IV SCH ×2 (01:21→09:04)
[2017-05-09] MEDS: ACETAMINOPHEN 1000 MG/100 ML 100 ML IV SCH ×4 (01:21→20:31)
[2017-05-09 04:00] VITALS: BP 143/76; PULSE 83; RESP 18; TEMP 98.3; O2SAT 99
[2017-05-09] MEDS: LEVOTHYROXINE SODIUM 25 MCG TAB PO SCH (06:00)
[2017-05-09] MEDS: PCA - TOTAL MG MORPHINE DELIVERED PER SHIFT SCH ×3 (06:00→22:00)
[2017-05-09] MEDS: BETHANECHOL CHL 10 MG TAB PO SCH ×3 (06:00→17:54)
[2017-05-09] MEDS: LEVOTHYROXINE SODIUM 112 MCG TAB PO SCH (06:00)
[2017-05-09] MEDS: ONDANSETRON HCL 4 MG/2 ML VIAL IV PUSH PRN (06:15)
[2017-05-09] MEDS ORDERED: ONDANSETRON INJ 8 MG in DEXTROSE 5% IN WATER INJ 50 ML IV PRN ×2 (07:00)
[2017-05-09 08:00] VITALS: BP 115/72; PULSE 74; RESP 20; TEMP 98; O2SAT 95
[2017-05-09] MEDS: SODIUM CHLORIDE 0.9% FLUSH 10 ML FLUSH IV FLUSH SCH ×2 (09:00→20:32)
[2017-05-09] MEDS: SODIUM CHLORIDE 0.9% FLUSH 5 ML FLUSH IVF SCH ×2 (09:00→20:32)
[2017-05-09] MEDS: FERROUS FUMARATE 325 MG TAB (106 MG ELEMENTAL IRON) PO SCH ×2 (09:00→20:31)
[2017-05-09] MEDS: PANTOPRAZOLE SODIUM 40 MG VIAL IV PUSH SCH (09:03)
[2017-05-09] MEDS: PROMETHAZINE INJ 25 MG/ML VIAL IM PRN (09:15)
--- NOTE | 2017-05-09 10:49 | HHI.PR ---
Subjective Subjective Notes n/v last night, still has nausea, reports 4 BM/flatus episodes. Sat in chair for 4 hours, did not walk in halls yet Objective Vitals/I&O Vital Signs Date Time Temp Pulse Resp B/P (MAP) Pulse Ox O2 Delivery O2 Flow Rate FiO2 05/09/17 08:00 98.0 74 20 115/72 (86) 95 05/08/17 18:31 21 05/07/17 09:29 Nasal Cannula 05/05/17 12:15 3 Labs Laboratory Tests Test 05/08/17 12:10 White Blood Count 11.7 Red Blood Count 3.45 Hemoglobin 10.6 Hematocrit 30.8 Mean Corpuscular Volume 89.1 Mean Corpuscular Hemoglobin 30.7 Mean Corpuscular Hemoglobin Concent 34.4 Red Cell Distribution Width 14.1 Platelet Count 391 Mean Platelet Volume 7.2 Neutrophils (%) (Auto) 76.8 Lymphocytes (%) (Auto) 13.7 Monocytes (%) (Auto) 6.7 Eosinophils (%) (Auto) 2.4 Basophils (%) (Auto) 0.4 Neutrophils # (Auto) 9.0 Lymphocytes # (Auto) 1.6 Monocytes # (Auto) 0.8 Eosinophils # (Auto) 0.3 Basophils # (Auto) 0.0 CBC Comment DIFF FINAL Differential Comment Blood Urea Nitrogen 14 Creatinine 0.66 Random Glucose 96 Calcium Level 8.5 Magnesium Level 1.6 Sodium Level 140 Potassium Level 3.8 Chloride Level 112 Carbon Dioxide Level 20.2 Anion Gap 8 Estimat Glomerular Filtration Rate 113 Abdomen: Post-op tenderness, BS normal Wound Wound : Wound Location: Abdomen Appearance: Clean & Dry Dressing: VAC A/P Assessment and Plan s/p exp lap, rock, resection of seroma. likely ileus encouraged her to walk and get oob. await full bowel function. Singh Hardy MD May 09, 2017 10:49
[2017-05-09 12:00] VITALS: BP 101/68; PULSE 78; RESP 19; TEMP 97.5; O2SAT 97
--- NOTE | 2017-05-09 13:00 | RADRPT ---
EXAM DATE/TIME: 05/09/2017 12:33 [facility] COMPARISON: ABDOMEN FLAT & UPRIGHT, May 03, 2017, 7:55. INDICATIONS : Vomiting abdominal pain post surgery MEDICAL HISTORY : Small bowel Obstruction SURGICAL HISTORY : section. repair of bowel obstrucion, hernia repair ENCOUNTER: Subsequent ACUITY: 4 - 6 days PAIN SCORE: 8/10 LOCATION: Bilateral Abdomen FINDINGS: Supine and upright views of the abdomen were performed. On the upright examination there is a small a mount of free air underneath the right hemidiaphragm. This is consisting with patient's recent abdomi nal surgery. There is some multiple mildly distended air-filled loops of small bowel throughout the a bdomen. The colon does not appear to be dilated. There is surgical clips in the right upper quadrant. The lung bases are grossly clear. The bony structures are grossly intact. CONCLUSION: 1. Multiple air-filled loops of dilated small bowel suggestive of a postoperative ileus. 2. Small amount of free air underneath the right hemidiaphragm characteristic of recent surgery. Coy Machado MD on May 09, 2017 at 12:56 Board Certified Radiologist. This report was verified electronically.
[2017-05-09 16:00] VITALS: BP 117/74; PULSE 74; RESP 17; TEMP 97.6; O2SAT 98
[2017-05-09] MEDS: EMTRICITABINE/TENOFOVIR 200 MG/300 MG TAB PO SCH (20:30)
[2017-05-09] MEDS: GABAPENTIN 300 MG CAP PO SCH (20:30)
[2017-05-09 20:40] VITALS: BP 127/71; PULSE 76; RESP 17; TEMP 98.4; O2SAT 100
[2017-05-10] MEDS: BETHANECHOL CHL 10 MG TAB PO SCH ×5 (00:14→22:53)
[2017-05-10] MEDS: D5-NS + KCL 20 MEQ INJ 1,000 ML IV SCH ×3 (00:15→21:07)
[2017-05-10 00:49] VITALS: BP 116/72; PULSE 75; RESP 17; TEMP 98.9; O2SAT 100
[2017-05-10] MEDS: ACETAMINOPHEN 1000 MG/100 ML 100 ML IV SCH ×4 (01:42→21:08)
[2017-05-10] MEDS: METOCLOPRAMIDE HCL 10 MG/2 ML VIAL IV PUSH SCH ×3 (01:43→17:29)
[2017-05-10 04:30] VITALS: BP 135/82; PULSE 78; RESP 17; TEMP 98.3; O2SAT 100
[2017-05-10] MEDS: PCA - TOTAL MG MORPHINE DELIVERED PER SHIFT SCH ×3 (06:00→21:23)
[2017-05-10] MEDS: LEVOTHYROXINE SODIUM 25 MCG TAB PO SCH (06:20)
[2017-05-10] MEDS: LEVOTHYROXINE SODIUM 112 MCG TAB PO SCH (06:20)
[2017-05-10 08:00] VITALS: BP 116/71; PULSE 73; RESP 20; TEMP 97.6; O2SAT 99
--- NOTE | 2017-05-10 08:05 | HHI.PR ---
Subjective Subjective Notes nausea a little better, still has some abdominal pain. Having bowel movements. Ready for [facility] to come out. Objective Vitals/I&O Vital Signs Date Time Temp Pulse Resp B/P (MAP) Pulse Ox O2 Delivery O2 Flow Rate FiO2 05/10/17 04:30 98.3 78 17 135/82 (99) 100 05/09/17 19:09 Room Air 05/08/17 18:31 21 Cardiovascular: Regular Lungs: Clear Abdomen: Other (mildly distended, few BSs. ZHOU intact, almost no drainage. drain serosanguinous. ), Post-op tenderness Extremities: No edema, Perfused A/P Assessment and Plan POD 5 s/p excision large SQ seromatous mass, exp lap adhesiolysis, resection of dilated SB anastomosis. Postop ileus, as expected. Must get up and walk. add scopolamine patch. Regular diet. Continue to walk halls. Home soon, next 1-2 days. Sukh Topete MD May 10, 2017 08:05
[2017-05-10] MEDS: SODIUM CHLORIDE 0.9% FLUSH 10 ML FLUSH IV FLUSH SCH ×2 (08:50→21:08)
[2017-05-10] MEDS: SCOPOLAMINE 1.5 MG PATCH T-DERMAL SCH ×2 (08:50→21:07)
[2017-05-10] MEDS: PANTOPRAZOLE SODIUM 40 MG VIAL IV PUSH SCH (08:51)
[2017-05-10] MEDS: FERROUS FUMARATE 325 MG TAB (106 MG ELEMENTAL IRON) PO SCH ×2 (08:51→21:08)
[2017-05-10] MEDS: SODIUM CHLORIDE 0.9% FLUSH 5 ML FLUSH IVF SCH ×2 (09:00→21:00)
[2017-05-10 12:00] VITALS: BP 116/66; PULSE 78; RESP 18; TEMP 97.3; O2SAT 100
[2017-05-10 16:00] VITALS: BP 142/83; PULSE 70; RESP 18; TEMP 97.3; O2SAT 99
[2017-05-10] MEDS: EMTRICITABINE/TENOFOVIR 200 MG/300 MG TAB PO SCH (21:08)
[2017-05-10] MEDS: GABAPENTIN 300 MG CAP PO SCH (21:08)
[2017-05-10] MEDS: MORPHINE SULFATE 30 MG/30 ML PCA IV SCH (21:09)
[2017-05-10 21:15] VITALS: BP 157/84; PULSE 78; RESP 22; TEMP 98.7; O2SAT 100
[2017-05-10] MEDS: PROMETHAZINE INJ 25 MG/ML VIAL IM PRN (21:20)
[2017-05-11] VITALS (7 sets, daily range): BP systolic 111–158; BP diastolic 69–91; PULSE 69–83; RESP 16–20; TEMP 97.2–100.2; O2SAT 99–100
[2017-05-11] MEDS: ACETAMINOPHEN 1000 MG/100 ML 100 ML IV SCH (01:16)
[2017-05-11] MEDS: METOCLOPRAMIDE HCL 10 MG/2 ML VIAL IV PUSH SCH (01:17)
[2017-05-11] MEDS: LEVOTHYROXINE SODIUM 25 MCG TAB PO SCH (05:53)
[2017-05-11] MEDS: BETHANECHOL CHL 10 MG TAB PO SCH ×4 (05:53→22:29)
[2017-05-11] MEDS: PCA - TOTAL MG MORPHINE DELIVERED PER SHIFT SCH (05:53)
[2017-05-11] MEDS: LEVOTHYROXINE SODIUM 112 MCG TAB PO SCH (05:53)
--- NOTE | 2017-05-11 08:04 | HHI.PR ---
Subjective Subjective Notes feels better, biggest complaint is burning back pain from a pinched nerve. No more emesis. Drain serous pink tinged, 40/ 24 hours.\ Voids, having BMs. Objective Vitals/I&O Vital Signs Date Time Temp Pulse Resp B/P (MAP) Pulse Ox O2 Delivery O2 Flow Rate FiO2 05/11/17 05:53 18 05/11/17 04:40 97.7 71 111/69 (83) 100 05/09/17 19:09 Room Air 05/08/17 18:31 21 Abdomen: Non-distended, Non-tender (ZHOU with minimal dried drainage. ), Other Extremities: No edema, Perfused A/P Assessment and Plan POD 6 s/p excision large SQ seromatous mass, exp lap adhesiolysis, resection of dilated SB anastomosis. Improved. DC all IV meds, LICENSE EXAMINER, IVFs, etc. PO protonix, lortab. Increase gabapentin to three times a day for back pain. Anticipate remove drain, DC home tomorrow. Will change ZHOU in AM. Sukh Topete MD May 11, 2017 08:04
[2017-05-11] MEDS: SODIUM CHLORIDE 0.9% FLUSH 10 ML FLUSH IV FLUSH SCH ×2 (09:00→20:12)
[2017-05-11] MEDS: SODIUM CHLORIDE 0.9% FLUSH 5 ML FLUSH IVF SCH ×2 (09:00→20:12)
[2017-05-11] MEDS: GABAPENTIN 300 MG CAP PO SCH ×3 (09:02→17:07)
[2017-05-11] MEDS: FERROUS FUMARATE 325 MG TAB (106 MG ELEMENTAL IRON) PO SCH ×2 (09:02→22:29)
[2017-05-11] MEDS: PANTOPRAZOLE SOD 40 MG DELAYED RELEASE TAB PO SCH (09:02)
[2017-05-11] MEDS: ACETAMINOPHEN/HYDROcodone 325 MG/7.5 MG TAB PO PRN (17:07)
[2017-05-11] MEDS: PROMETHAZINE INJ 25 MG/ML VIAL IM PRN (20:17)
[2017-05-11] MEDS: EMTRICITABINE/TENOFOVIR 200 MG/300 MG TAB PO SCH (22:29)
[2017-05-12 04:30] VITALS: BP 123/70; PULSE 82; RESP 16; TEMP 99.7; O2SAT 100
[2017-05-12] MEDS: BETHANECHOL CHL 10 MG TAB PO SCH ×2 (05:01→13:54)
[2017-05-12] MEDS: LEVOTHYROXINE SODIUM 112 MCG TAB PO SCH (05:01)
[2017-05-12] MEDS: LEVOTHYROXINE SODIUM 25 MCG TAB PO SCH (05:01)
[2017-05-12] MEDS: ACETAMINOPHEN/HYDROcodone 325 MG/7.5 MG TAB PO PRN ×3 (05:02→13:54)
[2017-05-12 08:00] VITALS: BP 121/70; PULSE 77; RESP 18; TEMP 99.2; O2SAT 100
[2017-05-12] MEDS ORDERED: HYDR-3534 PO (08:08)
--- NOTE | 2017-05-12 08:14 | HHI.DS ---
Discharge Summary Admission Date May 02, 2017 at 14:59 Discharge Date: May 12, 2017 Admitting Diagnosis partial SBO, large subcutaneous seromatous mass, persistent nausea. Procedures Excision 20 cm subcutaneous seromatous mass, ex lap adhesiolysis, resection of prior SB anastomosis. Brief History 56 year old with abdominal pain, n/v, large SQ seromatous mass, h/o multiple prior abdominal surgeries. CBC/BMP: 05/08/17 1210 05/08/17 1210 Significant Findings NO internal hernia. Large benign seroma associated with prior hernia mesh. Intra abdominal adhesions potentially causing partial obstruction, large dilated SB to SB anastomosis resected. PE at Discharge ZHOU dressing changed, buzzing. Incision looks great, drain removed. No erythema , abdomen non distended. Hospital Course Admitted through ED with concern for internal hernia, exam not compatible. Non operative management attempted unsuccessfully. Went to surgery, had procedure as above, had postop ileus, slowly resolved. Nausea persists, on scopolamine, zofran. Wants to go home. Back pain from herniated disc persists. Having bowel movements and voiding without pain. Pt Condition on Discharge: Fair Discharge Disposition: Discharge Home Discharge Instructions DIET: Follow Instructions for: As Tolerated, No Restrictions Additional Diet Instructions: ensure, boost, or carnation instant breakfast every day Activities you can perform: Shower Only-No Bath Activities to Avoid: Strenuous Activity, Driving Other Activity Instructions: May shower, avoid direct soaking of dressing, pat dry Sukh Topete MD May 12, 2017 08:14
[2017-05-12] MEDS ORDERED: SCOP1PAT2 T-DERMAL (08:15)
[2017-05-12] MEDS ORDERED: ONDA4TAB7 SL (08:15)
[2017-05-12] MEDS: SODIUM CHLORIDE 0.9% FLUSH 5 ML FLUSH IVF SCH (09:00)
[2017-05-12] MEDS: PANTOPRAZOLE SOD 40 MG DELAYED RELEASE TAB PO SCH (09:41)
[2017-05-12] MEDS: GABAPENTIN 300 MG CAP PO SCH ×2 (09:41→13:54)
[2017-05-12] MEDS: SODIUM CHLORIDE 0.9% FLUSH 10 ML FLUSH IV FLUSH SCH (09:41)
[2017-05-12] MEDS: FERROUS FUMARATE 325 MG TAB (106 MG ELEMENTAL IRON) PO SCH (09:41)
[2017-05-12] MEDS: PROMETHAZINE INJ 25 MG/ML VIAL IM PRN (10:33)
[2017-05-12 12:00] VITALS: BP 135/76; PULSE 90; RESP 18; TEMP 98.6; O2SAT 100
[2017-05-13] MEDS ORDERED: REMOVE OLD SCOPOLAMINE PATCH T-DERMAL SCH (08:00)
== END 2017-05-12 14:56 | disposition home or self-care (01) | DRG 330 ==
LOC: PHED 12:20 → PHEDA 14:59 → N06B 18:10
PROVIDERS: ADMIT Surgery Trauma Surgery; ATTEND Surgery Trauma Surgery
PROC: 0JB80ZZ Excision of Abdomen Subcutaneous Tissue and Fascia, Open Approach (ICD-10-PCS; 2017-05-05)
PROC: 0DN80ZZ Release Small Intestine, Open Approach (ICD-10-PCS; 2017-05-05)
PROC: 3E0M05Z Introduction of Adhesion Barrier into Peritoneal Cavity, Open Approach (ICD-10-PCS; 2017-05-05)
PROC: 0DBA0ZZ Excision of Jejunum, Open Approach (ICD-10-PCS; principal; 2017-05-05 08:30)
DX: K56.51 Intestinal adhesions [bands], with partial obstruction (principal); K91.89 Other postprocedural complications and disorders of digestive system; M79.81 Nontraumatic hematoma of soft tissue; E03.9 Hypothyroidism, unspecified; K56.7 Ileus, unspecified; E86.0 Dehydration; G89.29 Other chronic pain; M54.9 Dorsalgia, unspecified; E78.00 Pure hypercholesterolemia, unspecified; Z21 Asymptomatic human immunodeficiency virus [HIV] infection status
CPT/HCPCS: 74020; 74177; 74245; 80048; 80053; 81001; 83605; 83690; 83735; 84155; 85025; 85610; 85730; 86850; 86900; 86901; 88305; 88307; 93005; 94150; 96361; 96374; 96375; C9113; J0131; J0330; J0690; J1100; J1170; J1885; J2250; J2270; J2370; J2405; J2550; J2710; J2765; J3010; J3475; J3480; J7030; J7040; J7060; J7120; Q9963; Q9967